=== PATIENT | female | born 1955 | race Caucasian/White ===

== ENCOUNTER 2023-10-13 11:28 | Inpatient (IN) ==
--- NOTE | 2023-10-13 11:40 | ED Triage Note ---
Date of Service October 13, 2023 Provider in Triage Author: Alissa Collins History of Present Illness This patient was briefly evaluated while in triage. An abbreviated physical exam was performed. This patient is a 67-year-old Female who presents to the ED for evaluation of chest pain and shortness of breath x 2.5 hours. She states pain is in the center of her chest and radiates upward into her throat slightly. Did have some pain in the right arm earlier. Has hx of HTN, HLD and DM. No hx cardiac disease. Physical Exam VITALS: Vitals are noted on the nurse's note and reviewed by myself. GENERAL: This is a 67-year-old female, sitting upright in triage. HEART: Regular rate and rhythm without murmurs gallops or rubs. LUNGS: Clear to auscultation bilaterally without wheezes, rales or rhonchi. ABDOMEN: Soft, nontender to palpation. NEURO: Patient was alert and oriented to person place and time. Initial orders for labs and / or imaging were placed and patient was placed in the waiting area until a bed is available. Please see further documentation for the full ED course. MDM / Impression Impression Impression: New onset atrial fibrillation
[2023-10-13] MEDS: ASPIRIN CHEW 324 MG PO STA (11:53)
[2023-10-13 12:20] LABS: Basophils # (auto) 0.05 K/uL (0.00-0.20); Basophils % (auto) 0.6 %; Eosinophils # (auto) 0.19 K/uL (0.00-0.50); Eosinophils % (auto) 2.1 %; Hematocrit (blood only) 50.3 % (37.0-47.0); Hemoglobin 17.5 g/dl (12.0-16.0); Immature Granulocytes # (auto) 0.05 K/uL (0.01-0.20); Immature Granulocytes % (auto) 0.6 %; Lymphocytes # (auto) 2.62 K/uL (1.20-3.40); Lymphocytes % (auto) 29.5 %; Mean Corpuscular Hemoglobin 30.6 pg (25.0-34.0); Mean Corpuscular Hgb Conc 34.8 g/dL (32.0-36.0); Mean Corpuscular Volume 88.1 fL (80.0-100.0); Monocytes # (auto) 0.54 K/uL (0.11-0.59); Monocytes % (auto) 6.1 %; Neutrophils # (auto) 5.43 K/uL (1.40-6.50); Neutrophils % (auto) 61.1 %; Platelet Count 221 K/uL (130-400); RDW Coefficient of Variation 12.5 % (11.5-14.5); RDW Standard Deviation 40.4 fL (36.4-46.3); Red Blood Count 5.71 M/uL (4.20-5.40); White Blood Count 8.88 K/ul (4.8-10.8)
[2023-10-13] MEDS: NITROGLYCERIN SL 0.4 MG/TAB TAB ONE (12:25)
[2023-10-13] MEDS: dilTIAZem HCl 5 MG/ML 5 ML VIAL IV ONE (12:25)
[2023-10-13] MEDS: dilTIAZem HCl 5 MG/ML 5 ML VIAL IV STA (12:25)
[2023-10-13] MEDS: NITROGLYCERIN 60 SPRAYS/4.9 GM SPRAY ONE (12:25)
[2023-10-13] MEDS: SODIUM CHLORIDE 0.9% 1,000 ML IV ONE (12:26)
[2023-10-13 12:35] LABS: D Dimer 400 ug/L FEU (0-500); Partial Thromboplastin Ratio 0.9; Partial Thromboplastin Time 26 Seconds (21-31); Prothrombin Time 10.5 Seconds (9.0-12.0)
[2023-10-13 13:01] LABS: Albumin Globulin Ratio 1.4 (0.9-2); Albumin Level 4.7 gm/dl (3.4-5.0); BUN Creatinine Ratio 19.3 (10-20); Bilirubin,Total 0.7 mg/dl (0.2-1.0); Calcium 9.6 mg/dl (8.6-10.3); Est GFR (African American) 85.2 ml/min; Est GFR (Non-African American) 73.5 ml/min; Globulin 3.3 gm/dl (2.5-4.0); Magnesium 1.7 mg/dl (1.7-2.4)
--- NOTE | 2023-10-13 13:01 | XRay Report ---
XR chest 1V portable CLINICAL HISTORY: Chest pain, nonspecific TECHNIQUE: Single frontal radiograph of the chest was obtained. Comparison: None available at the time of this dictation. FINDINGS: No lines and tubes are seen. The cardiomediastinal silhouette is normal. The lungs are clear. No evid ence of pleural effusion or pneumothorax. IMPRESSION: No acute chest disease. ACT 112: Negative or not required by law. Electronically signed by: Lalo Javier M.D. 10/13/2023 12:59 PM
[2023-10-13 13:08] LABS: Troponin I High Sensitivity 7.6 pg/ml (0-14)
[2023-10-13] MEDS ORDERED: MAGNESIUM HYDROXIDE SUSP 30 ML UDC PO PRN (14:14)
[2023-10-13] MEDS ORDERED: ACETAMINOPHEN 325 MG TAB PO PRN (14:14)
[2023-10-13] MEDS ORDERED: ONDANSETRON INJ 2 MG/ML 2 ML VIAL IV PRN (14:14)
[2023-10-13] MEDS ORDERED: POLYETHYLENE (MIRALAX) 17 GM PACK PO PRN (14:14)
[2023-10-13] MEDS ORDERED: ALUMINUM/MAGNESIUM SUSP 30 ML UDC PO PRN (14:14)
[2023-10-13] MEDS: NITROGLYCERIN SL 0.4 MG/TAB TAB SL STA (14:20)
--- NOTE | 2023-10-13 14:32 | History & Physical Report ---
Date of Service October 13, 2023 Assessment & Plan (1) New onset atrial fibrillation: (2) Hypertension: (3) HLD (hyperlipidemia): (4) Acid reflux: (5) Non-insulin dependent type 2 diabetes mellitus: (6) Chest pain: Plan Ms. Arauz is a 67-year-old female with SOB, palpitations, and midsternal chest pain with radiation down her left arm. She reports feeling nauseous starting on Friday without vomiting. No other contributing symptoms. When placed on heart monitor she was noted to be in AF with RVR; 130-150. 1 sublingual nitro was administered with resolution of her chest pain. PMH: HTN, HLD, hypothyroidism, NIDDM2, and GERD. Reportedly patient had a repeat episode of chest pain at 2: 15 for which another sublingual nitro was administered. Chest x-ray negative. No leukocytosis, electrolytes unremarkable. D-dimer negative. Initial troponin negative. In the ED SL nitro x 1, ASA 324 mg, Cardizem bolus 20 mg along with 1L NS has been administered. Heart rate decreased to low 100s remaining in A-fib. She takes lisinopril/HCTZ as an outpatient but is not on any beta-avni. She does take a low-dose statin. Patient denies cardiac or stroke history outside of hypertension. Patient denies coffee or energy drink intake. When I was in the room it appeared based on the heart monitor that she was in normal sinus rhythm. Will obtain new EKG. AOx4 without diaphoresis, notes some bilateral trace lower extremity edema which is chronic for her, but no known heart failure. Patient will be admitted for new onset atrial fibrillation management. [id number]- VASc score 4 (age, gender, history of HTN and DM ). Given her moderate to severe risk of cardiac event given her [id number] and moderate- severe risk of AMI/CVA; will add beta-avni for rate control and heparin drip. Zain trend troponin, obtain echocardiogram (no baseline noted as an outpatient), ECG admit to PCU, consult cardiology, place on SSI while obtaining A1c, TSH, and lipid panel. New onset atrial fibrillation: Chest pain: Acute Initial heart rate irregular 130-150 [id number]: 4 ECG: AF with possible changes in II, III, and AvF; converted to NSR in the room; obtain repeat ECG Initial troponin negative; will trend x 1. Do not suspect ACS or other ischemic demand related to new onset A-fib No leukocytosis, D-dimer negative, no electrolyte abnormalities CXR negative Received nitro x 1 SL and ASA 324 mg in ED Received Cardizem bolus 20 mg in ED; Will place beta-avni and heparin drip Obtain ECHO; no baseline Obtain BNP, A1c, TSH, fasting lipid panel Consult cardiology HTN: Chronic Takes lisinopril/HCTZ; continue Does not take a beta-avni HLD: Chronic Takes atorvastatin; continue Most recent lipid panel 12/11/2022; TG 160, HDL 37, LDL 75 Diabetes Mellitus type II: Chronic Laa-bjuukyd-ihxpuechu Takes Trulicity and metformin; hold while inpatient and placed on SSI ACHS Most recent A1c 04/29/2023; 6.5; repeat while here in a.m. JIMENA: Chronic Was supposed to have a sleep study done, but has not yet GERD: Chronic Takes famotidine; continue Disposition: PCP: Dr. Badillo CODE STATUS: Full Code VTE prophylaxis: Heparin gtt I spent a total of 87 minutes coordinating, documenting, and providing care for this patient excluding time spent in the performance of separately billed services. All of the aforementioned completed while collaborating with the assigned attending physician for a full treatment plan. Please see their addendum for further details. History of Present Illness Chief Complaint: Chest pain and palpitations Primary Care Provider: Juan Badillo MD Ms. Arauz is a 67-year-old female that presented to the ED this morning with complaints of shortness of breath, palpitations, and midsternal chest pain with radiation down her left arm. She reports feeling nauseous starting on Friday without vomiting. No other contributing symptoms. When placed on heart monitor she was noted to be in atrial fibrillation with rapid ventricular response with a rate ranged from 130-150. 1 sublingual nitro was administered with resolution of her chest pain. Additional past medical history includes HTN, HLD, hypothyroidism, ldg-rrpzbdj-hrsqjjawk diabetes type 2, and GERD. In the ED SL nitro x 1, ASA 324 mg, Cardizem bolus 20 mg along with 1L NS administered. Heart rate decreased to low 100s remaining in A-fib. Reportedly patient had a repeat episode of chest pain at 2:15 for which another sublingual nitro was administered. Chest x-ray negative for acute cardiopulmonary disease. No leukocytosis, stefan ctrolytes unremarkable. D-dimer negative. Initial troponin negative. She takes lisinopril/HCTZ as an outpatient but is not on any beta-avni medication. She does take a low-dose statin. Patient denies any cardiac or stroke history outside of hypertension. Father had extensive history of CAD s/p AMI, DM2, and CVA. He was at 95 y/o. Denies tobacco, alcohol, or recreational drug use. Review of outpatient records indicate on 04/29/2023 her last A1c (6.5) and TSH (13.20) were drawn. Patient denies coffee or energy drink intake. Patient denies headache, dizziness,, shortness of breath, abdominal pain or tenderness, visual or auditory changes, changes with bowel or urine, recent falls or trauma. When I was in the room it appeared based on the heart monitor that she converted to normal sinus rhythm. Will obtain new EKG. Otherwise AOx4 without diaphoresis, notes some bilateral trace lower extremity edema which is chronic for her. Patient will be admitted for new onset atrial fibrillation management. [id number]- VASc score 4 (age, gender, history of HTN and DM ). Given her moderate to severe risk of cardiac event given her [id number] and moderate- severe risk of AMI/CVA; will add beta-avni for rate control and heparin drip. Zani trend troponin, obtain echocardiogram (no baseline noted as an outpatient), ECG admit to PCU, consult cardiology, place on SSI while obtaining A1c, TSH, and lipid panel. Allergies Allergy/AdvReac Type Severity Reaction Status Date / Time No Known Allergies AdvReac Unknown Unverified 10/13/23 13:14 Home Medications Medication Instructions Recorded Confirmed Type atorvastatin 20 mg tablet 20 mg PO QAM 10/13/23 10/13/23 History calcium carbonate 600 mg-vitamin 2 tab PO DAILY 10/13/23 10/13/23 History D3 10 mcg (400 unit) tablet (Calcium 600 + D(3)) dulaglutide 0.75 mg/0.5 mL 0.75 mg subcut .WEEK 10/13/23 10/13/23 History subcutaneous pen injector (Trulicity) famotidine 40 mg tablet 40 mg PO HS 10/13/23 10/13/23 History fexofenadine 180 mg tablet 180 mg PO DAILY 10/13/23 10/13/23 History fluticasone propionate 50 2 spray intranasal DIRECTED PRN 10/13/23 10/13/23 History mcg/actuation nasal Nasal Congestion spray,suspension (Flonase Allergy Relief) dgbshozhuvs-yzufwxjkc-slb C-Mn 500 1 cap PO DAILY 10/13/23 10/13/23 History mg-400 mg capsule levothyroxine 75 mcg tablet 75 mcg PO QAM 10/13/23 10/13/23 History lisinopril 10 1 tab PO QAM 10/13/23 10/13/23 History mg-hydrochlorothiazide 12.5 mg tablet meclizine 25 mg tablet 25 mg PO TID PRN .dizzyness 10/13/23 10/13/23 History metformin 500 mg tablet,extended 500 mg PO QAM 10/13/23 10/13/23 History release 24 hr multivitamin 1 tab PO DAILY 10/13/23 10/13/23 History omega-3 fatty acids 1,000 mg 1,000 mg PO DAILY 10/13/23 10/13/23 History capsule Past Med/Surg History Medical History (Updated 10/13/23 @ 15:42 by CHELSEA Zamorano) Chest pain Non-insulin dependent type 2 diabetes mellitus New onset atrial fibrillation Acid reflux HLD (hyperlipidemia) Hypertension Surgical History (Updated 10/13/23 @ 15:44 by CHELSEA Zamorano) History of tubal ligation S/P ankle ligament repair Family History (Updated 10/13/23 @ 15:43 by CHELSEA Zamorano) Father Coronary heart disease Diabetes Other No pertinent family history in first degree relatives Social History Smoking Status: Never smoker Preferred Language: Macedonian Feels Safe at Home: Yes Review of Systems Review of Systems: Neuro: (-) Falls, trauma, slurred speech HEENT: (-) ADAMSON, dizziness, dysphagia, visual or auditory changes CV: (+) CP, palpitations, (+) 1 LE swelling Resp: (-) SOB GI: (-) appetite changes, N/V/D, bowel changes : (-) urinary changes Skin: (-) rashes Psych: (-) anxiety, depression Physical Exam Physical Exam: Neuro: AAOx4, PERRLA, no aphagia, memory changes, CNII-XII grossly intact HEENT: head normocephalic, moist mucus membranes CV: S1/S2, (-) M/G/R, (+)1 BL edema, cap refill < 3 seconds Resp: Lungs CTA in all pham. On RA GI: Abdomen S/NT/ND, Ax4 bowel sounds, (-) CVA tenderness Musculoskeletal: 5/5 B/L UE strength, 5/5 B/L LE strength. No gait disturbance Skin: (-) rashes , (-) erythema. Psych: euthymic mood Results & Data Results & Data Vital Signs (Past 12 Hours) Vital Signs Temp Pulse Resp BP Pulse Ox O2 Del Method 10/13/23 13:45 104 H 20 95 10/13/23 13:30 92 H 18 95 10/13/23 13:30 127/88 10/13/23 13:17 90 18 95 10/13/23 13:17 107/88 10/13/23 13:00 99 H 18 94 10/13/23 13:00 114/68 10/13/23 12:45 138/78 10/13/23 12:45 96 H 24 93 10/13/23 12:36 86 10/13/23 12:34 99 H 20 93 10/13/23 12:15 98 Room Air 10/13/23 11:38 36.7 C 117 H 20 142/85 H 95 Room Air Laboratory Results Short CBC 10/13/23 Range/Units 12:07 WBC 8.88 (4.8-10.8) K/ul Hgb 17.5 H (12.0-16.0) g/dl Hct 50.3 H (37.0-47.0) % Plt Count 221 (130-400) K/uL BMP 10/13/23 12:07 Sodium 139 Potassium 4.0 Chloride 104 Carbon Dioxide 28 BUN 16 Creatinine 0.83 Glucose 196 H Calcium 9.6 Liver Function 10/13/23 Range/Units 12:07 Total Bilirubin 0.7 (0.2-1.0) mg/dl AST 25 (13-39) U/L ALT 27 (7-52) U/L Alkaline Phosphatase 60 (34-104) U/L Albumin 4.7 (3.4-5.0) gm/dl Diagnostic Findings Chest X-Ray 10/13/23 11:40 XR chest 1V portable CLINICAL HISTORY: Chest pain, nonspecific TECHNIQUE: Single frontal radiograph of the chest was obtained. Comparison: None available at the time of this dictation. FINDINGS: No lines and tubes are seen. The cardiomediastinal silhouette is normal. The lungs are clear. No evidence of pleural effusion or pneumothorax. IMPRESSION: No acute chest disease. ACT 112: Negative or not required by law. Electronically signed by: Lalo Javier M.D. 10/13/2023 12:59 PM Code Status & VTE Plan Code Status Full code in the event of cardiac respiratory arrest VTE Prophylaxis Plan VTE Prophylaxis will be ordered: Yes Supervising Physician Co-Signing Physician Notes Attending addendum: The patient was seen and examined in emergency room in presence of the significant other She has been complaining of chest pain with shortness of breath and radiation of pain to the neck since yesterday She has not had this problem before, denies any palpitation No nausea no vomiting, no fever or chills and no abdominal pain or problem with urine or bowel habit On examination Lying in bed comfortably Hemodynamically stable with tachycardia of 104 Chest-clear to auscultate bilaterally Heart-S1-S2, regular without any murmur Abdomen-benign Extremities-trace edema bilaterally Her admission labs, EKG and imaging studies reviewed Initial EKG did show A-fib with a rate of [address]-T wave changes-received 20 of intravenous Cardizem Converted to sinus rhythm as per monitor Cardiac enzymes unremarkable and will be checked again to make sure there is no ACs Started on intravenous heparin and also oral beta-avni Cardiology evaluation Agree with assessment and plan as outlined above by Digna Collier
[2023-10-13] MEDS ORDERED: METOPROLOL SUCC 25MG EXT REL TAB PO SCH (15:15)
[2023-10-13] MEDS ORDERED: DEXTROSE 50% 50 ML SYRINGE IV PRN (15:31)
[2023-10-13] MEDS ORDERED: CARBOHYDRATES FOR HYPOGLYCEMIA PO PRN (15:31)
[2023-10-13] MEDS ORDERED: GLUCOSE 10 TAB/TUBE PO PRN (15:31)
[2023-10-13] MEDS ORDERED: GLUCOSE 40% GEL 15 GM TUBE PO PRN (15:31)
[2023-10-13] MEDS ORDERED: GLUCAGON FOR INJ 1 MG VIAL SQ PRN (15:31)
[2023-10-13] MEDS ORDERED: PHARMACY GLYCEMIC MGMT CONSULT PRN (15:31)
[2023-10-13] MEDS ORDERED: FLUTICASONE PROPIONATE NA SPR 16 GM BTL PRN (15:36)
[2023-10-13 15:47] LABS: Troponin I High Sensitivity 9.3 pg/ml (0-14)
[2023-10-13 15:55] LABS: Thyroid Stimulating Hormone 9.721 uIu/ml (0.300-4.500)
--- OUTSIDE RECORDS SUMMARY | 2023-10-13 15:57 | External Medical Summary | Summary of Care ---
Author Name Unknown Organization [facility] Address [address] [place] [address] Phone [phone] Care Team Providers Care Steel Checker Name Role Phone Juan Badillo MD Primary Care Provider [phone] Encounter Details Date Type Department Care Team (Late st Contact Info) Description 10/01/2023 Orders Only PATIENT PORTAL DO NOT DELETE THIS DEPT USED BY [place] [id number] Allergies No known active allergiesdocumented as of this encounter (statuses as of 10/01/2023) Medications Medication Sig Dispensed Refills Start Date End Date Status DUANE 180 MG PO TABS One pill by mouth once a day for allergies 30 Tab 11 12/02/2011 Active MECLIZINE HCL 25 MG PO TABSIndications:Vert igo One pill by mouth up to 3 times a day as needed for dizziness 30 Tab 1 12/02/2011 Active MULTIVITAMINS PO CAPS one pill each day 0 Active CALCIUM 1000 + D 1000-800 MG-UNIT PO TABS one pill each day 0 Active GLUCOSAMINE CHONDR 1500 COMPLX PO CAPS one pill each day 0 Active OCEAN NASAL SPRAY 0.65 % NA SOLNIndications:Charline llergic rhinitis Two sprays in each nostril as needed for nasal dryness or congestion 1 Bottle 5 08/29/2014 Active fluticasone (FLONASE) 50 MCG/ACT nasal sprayIndications:Chr onic rhinitis USE 2 SPRAYS EACH NOSTRIL ONCE DAILY 16 mL 5 07/14/2015 Active omega-3 1000 MG CAPS Take by mouth. 0 Active Diclofenac Sodium 75 MG Oral Tablet Delayed Release (VOLTAREN)Indication s:Plantar fasciitis TAKE 1 TAB BY MOUTH 2 TIMES A DAY WITH FOOD 180 Tab 0 07/12/2020 Active Lisinopril-hydroCHLO ROthiazide 10-12.5 MG Oral TabletIndications:HT N, goal below 140/90 TAKE BY MOUTH 1 TABLET IN THE MORNING. 90 Tablet 3 12/13/2022 Active Famotidine 40 MG Oral Tablet (Pepcid) TAKE 1 TABLET BY MOUTH EVERYDAY AT BEDTIME 90 Tablet 2 03/20/2023 Active Atorvastatin Calcium 20 MG Oral Tablet (Lipitor)Indications :Dyslipidemia, goal LDL below 100 TAKE 1 TABLET BY MOUTH EVERY DAY IN THE MORNING 90 Tablet 2 03/20/2023 Active Levothyroxine Sodium 75 MCG Oral Tablet (Levoxyl)Indications :Acquired hypothyroidism,Hyper glycemia Take 1 Tablet by mouth in the morning. (at least 30 min prior to breakfast or other meds). 30 Tablet 5 05/06/2023 Active Joint Health Oral Capsule Take by mouth. 0 Active Trulicity 0.75 MG/0.5ML Subcutaneous Solution Pen-injector (Dulaglutide)Indicat ions:Diabetes mellitus without complication (HCC) Inject 0.75 mg under the skin once a week. 2 mL 1 09/30/2023 Active metFORMIN HCl ER 500 MG Oral Tablet Extended Release 24 Hour (Glucophage XR) Take 1 Tablet by mouth in the morning. 30 Tablet 11 09/30/2023 Active documented as of this encounter (statuses as of 10/01/2023) Active Problems Problem Noted Date Diagnosed Date Acquired hypothyroidism 09/30/2023 Diabetes mellitus without complication Mass of uterine adnexa 04/29/2023 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 Hypertension 12/10/2021 Gastroesophageal reflux disease 12/10/2021 Body mass index (BMI) of 40.0 to 44.9 in adult 1 Overview: Per Obesity protocol - bmi= 34.65 10/14/12 Nonallergic rhinitis 08/29/2014 Hyperlipidemia 10/14/2012 Menopause 10/01/2005 documented as of this encounter (statuses as of 10/01/2023) Resolved Problems Problem Noted Date Diagnosed Date Resolved Date Obesity, Class I, BMI 30.0-3 4.9 (see actual BMI) 10/14/2012 06/16/2019 Overview: bmi= 34.65 10/14/12 Dysfunction of eustachian tube 10/14/2012 04/02/2018 Hyperlipidemia with target LDL less than 100 2 10/14/2012 Overview: ICD-10 update of inactive term Cough 10/29/2005 04/02/2018 ACUTE URI NOS 10/29/2005 10/20/2008 Overview: Resolved per Benign Acute Dxs Protocol #3 Unspecified viral infection, in conditions classified elsewhere and of unspecified site 10/29/2005 04/02/2018 ADVANCE DIRECTIVE INFORMATION 10/01/2005 06/17/2019 Overview: No, Advance Directive brochure given to patient at prior appointment. Dyslipidemia, goal to be determined 04/16/2002 10/14/2012 Chronic rhinitis 11/30/2001 10/14/2012 documented as of this encounter (statuses as of 10/01/2023) Immunizations Name Administration Dates Next Due H1N1 2009 Influenza, IM 09/05/2009 Seasonal Influenza, PF, 6 M & above, IM , (FluLaval or Fluzone) 06/01/2019 Seasonal Influenza, Quadriva lent, No Preserve, IM 07/28/2020,06/26/2018,06/15/2017 Seasonal Influenza, Split, I IV3, With Preserve, Inj 07/02/2016,06/08/2014,06/16/2013,07/02,07/02/2011,07/02/2009,07/09/2008 TDAP (age 10 and older)(Boostrix) 06/13/2014 TDAP (age 11 and older)(Adacel) 12/28/2008 12/28/2018 Zoster Vaccine Recombinant (Shingrix) 12/25/2021 documented as of this encounter Social History Tobacco Use Types Packs/Day Years Used Date Smoking Tobacco: Never Passive Smoke Exposure: Past Smokeless Tobacco: Never Alcohol Use Standard Drinks/Week Comments No 0 (1 standard drink = 0.6 oz pur e alcohol) PHQ-2 Answer Date Recorded PHQ Adult Total Score 0 12/11/2022 Hunger Vital Sign Answer Date Recorded Within the past 12 months, y ou worried that your food would run out before you got the money to buy more. Never true 12/12/19 23 Within the past 12 months, t he food you bought just didn't last and you didn't have money to get more. Never true 12/11/2022 Sex and Gender Information Value Date Recorded Sex Assigned at Not on file Gender Identity Not on file Sexual Orientation Straight 08/15/2020 7: 30 AM EST Job Start Date Occupation Industry Not on file Not on file Not on file documented as of this encounter Plan of Treatment Upcoming Encounters Date Type Department Care Team (Late st Contact Info) Description 10/09/2023 11:00 AM EST Office Visit [facility] [address] [place] [phone] Jennifer Sutton CRNP [address] [place] [id number] 12/15/2023 8:20 AM EDT Office Visit [facility] [address] [place] [phone] Juan Badillo MD [address], [place] [id number] Scheduled Procedures Name Priority Associated Diagnoses Date/Ti me COLONOSCOPY FLEXIBLE PROXIMA L DIAGNOSTIC Recall History of colonic polyps Health Maintenance Due Date Last Done Comments COVID-19 Vaccine (#1) 06/21/1956 Pneumococcal Vaccine: 65+ Years (1 - PCV) 1962 Diabetic Foot Exam 1974 Hepatitis C Screening 1974 Hepatitis B (1 of 3 - Risk 3-dose series) 2016 Zoster Vaccines (2 of 2) 02/19/2022 12/25/2021 Influenza Vaccine (FLU shot) (#1) 2023 07/28/2020, 06/01/2019, 06/26/2018, Additional history exists HbA1c 10/30/2023 04/29/2023 Albumin/Creatinine Ratio 12/12/2023 12/11/2022 Depression Screening 12/12/2023 12/11/2022 GFR 12/12/2023 12/11/2022, 12/01, 07/19/2019, Additional history exists Mammogram 04/10/2024 04/10/2023, 04/01, 03/27/2022, Additional history exists TSH 04/29/2024 04/29/2023, 11/30, 08/02/2002, Additional history exists DTaP,Tdap,and Td Vaccines (3 - Td or Tdap) 06/13/2024 06/13/2014, 12/28/2008, 01/06/1999 Diabetic Eye Exam 09/30/2024 09/30/2023 DXA Scan 09/18/2025 09/18/2022, 09/01, 02/17/2012, Additional history exists Lipid Panel 12/12/2027 12/11/2022, 12/01, 06/01/2019, Additional history exists COLONOSCOPY-EVERY 5 YRS AGES 18-100 04/07/2028 04/07/2023, 04/07/2023, 04/06/2018, Additional history exists Pap Smear Discontinued 05/09/2020, 10/2017, 01/20/2012, Additional history exists GARDASIL-HPV IMMUNIZATION SERIES Aged Out No longer eligible based on patient's age to complete this topic MENINGOCOCCAL (MENACTRA/MENVEO) Aged Out No longer eligible based on patient's age to complete this topic documented as of this encounter Medical Devices Not on filedocumented as of this encounter Care Teams Steel Checker Relationship Specialty Start Date End Date Juan Badillo MD [address] [place] [address] PCP - General 06/01/00 documented as of this encounter
--- OUTSIDE RECORDS SUMMARY | 2023-10-13 15:57 | External Medical Summary | Summary of Care ---
Author Name Unknown Organization [facility] Address [address] [facility] [place] [address] Phone [phone] Care Team Providers Care Sponsorship Coordinator Name Role Phone Juan Badillo MD Primary Care Provider +1- [phone] Reason for Referral * Evaluate & Treat - Unlimited Visits (Within 10 days (routine)) - Authorized Specialty Diagnoses / Procedures Referred By Lizzie chen Referred To Contact Sleep Medicine / Sleep Disorders Diagnoses Body mass index (BMI) of 40.0 to 44.9 in adult ([facility]) Primary hypertension Fatigue, unspecified type Paulette Soto MD [address] [place] [address] Referral ID Status Reason Start Date Expiration Date Visits Requested Visits Authorized [id number] Authorized Specialty Services Required 09/30/2023 2 2 Question Answer GS CAD SLEEP MED ADULT REFERRAL Sleep Apnea Testing and Management Does the patient snore and/or gasp at night or has been told they stop breathing at night? Yes Referral Priority Within 10 days (routine) Where should this appointment be scheduled? [facility] * Medication Prior Authorization - Pending Review Specialty Diagnoses / Procedures Referred By Lizzie chen Referred To Contact Diagnoses Diabetes mellitus without complication ([facility]) Paulette Soto MD [address] [place] [address] Referral ID Status Reason Start Date Expiration Date V isits Requested Visits Authorized [id number] Pending Review 999 999 Reason for Visit * Reason Comments Status Check Gets winded when wal kingQuestions regarding Golow and other diet drugs out there Encounter Details Date Type Department Care Team (Late st Contact Info) Description 09/30/2023 11:20 AM EST [facility] [address] [facility] [place] [address] Paulette Soto MD [address] [facility] [address] Fatigue, unspecified type*; Body mass index (BMI) of 40.0 to 44.9 in adult (HCC); Primary hypertension; HTN, goal below 140/90; Dyslipidemia, goal LDL below 100; Acquired hypothyroidism; Diabetes mellitus without complication (HCC) Allergies No known active allergiesdocumented as of this encounter (statuses as of 09/30/2023) Medications Medication Sig Dispensed Refills Start Date [...] as of this encounter (statuses as of 09/30/2023) Active Problems Problem Noted Date Diagnosed Date Acquired hypothyroidism 09/30/2023 Diabetes mellitus without complication 4 Mass of uterine adnexa 04/29/2023 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 Hypertension 12/10/2021 Gastroesophageal reflux disease 12/10/2021 Body mass index (BMI) of 40.0 to 44.9 in adult 1 Overview: Per Obesity protocol - bmi= 34.65 10/14/12 Nonallergic rhinitis 08/29/2014 Hyperlipidemia 10/14/2012 Menopause 10/01/2005 documented as of this encounter (statuses as of 09/30/2023) Resolved Problems Problem Noted Date Diagnosed Date [...] as of this encounter (statuses as of 09/30/2023) Immunizations Name Administration Dates Next Due H1N1 [...] Passive Smoke Exposure: Past Smokeless Tobacco: Never Tobacco Cessation:Counseling Given: Not Answered Alcohol Use Standard Drinks/Week Comments No 0 [...] on file documented as of this encounter Last Filed Vital Signs Vital Sign Reading Time Taken Comments Blood Pressure 124/78 09/30/2023 11:07 AM EST Pulse 91 09/30/2023 11:07 AM EST Temperature 36.1 C (96.9 F) 09/30/2023 11:[address] Respiratory Rate 16 09/30/2023 11:07 AM EST Oxygen Saturation 95% 09/30/2023 11:07 AM EST Inhaled Oxygen Concentration - - Weight 108.4 kg (239 lb) 09/30/2023 11:07 AM EST Height - - Body Mass Index 43.71 04/29/2023 11:01 AM EDT documented in this encounter Progress Notes * Paulette Soto MD - 09/30/2023 11:53 AM EST Subjective Lisa Arauz is a 67 year old female. Chief Complaint Patient presents with Status Check Gets winded when walking Questions regarding Golow and other diet drugs out there HPI: Here to discuss about fatigue, easily getting winded on walking Also would like to discuss about weight loss med She had blood tests done in apr, which showed mild type 2 DM, hba1c 6.5 and hypothyroidism, Known morbid obesity Tried to contact pt about result and medication use But pt never got back Has been taking thyroid med occ , not compliant And also didn't know about DM Will try trulicity ( has supply issue ) And also ordering metformin Diet exercise - discussed And with fatigue , obesity, thick neck , will get sleep test Hypertension , Hl Taking medication as prescribed, see med list. No medication side effects noted. Advised patient tokeep healthy life style, regular exercise with good diet, tejas. low sodium diet. And also check BP at home too. Denies associated chest discomfort, chest heaviness, chest pressure, chest tightness, edema, palpitations PMH: Patient Active Problem List Diagnosis Code Menopause Z78.0 Hyperlipidemia E78.5 Nonallergic rhinitis J31.0 Body mass index (BMI) of 40.0 to 44.9 in adult (HCC) Z68.41 Hypertension I10 Gastroesophageal reflux disease K21.9 Mass of uterine adnexa N94.89 Sclerosing mesenteritis ([facility]) K65.4 Acquired hypothyroidism E03.9 Diabetes mellitus without complication ([facility]) E11.9 Current Outpatient Medications Medication Sig Dispense Refill DUANE 180 MG PO TABS One pill by mouth once a day for allergies 30 Tab 11 MECLIZINE HCL 25 MG PO TABS One pill by mouth up to 3 times a day as needed for dizziness 30 Tab 1 MULTIVITAMINS PO CAPS one pill each day CALCIUM 1000 + D 1000-800 MG-UNIT PO TABS one pill each day GLUCOSAMINE CHONDR 1500 COMPLX PO CAPS one pill each day OCEAN NASAL SPRAY 0.65 % NA SOLN Two sprays in each nostril as needed for nasal dryness or congestion 1 Bottle 5 fluticasone (FLONASE) 50 MCG/ACT nasal spray USE 2 SPRAYS EACH NOSTRIL ONCE DAILY 16 mL 5 omega-3 1000 MG CAPS Take by mouth. Diclofenac Sodium 75 MG Oral Tablet Delayed Release (VOLTAREN) TAKE 1 TAB BY MOUTH 2 TIMES A DAY WITH FOOD 180 Tab 0 Lisinopril-hydroCHLOROthiazide 10-12.5 MG Oral Tablet TAKE BY MOUTH 1 TABLET IN THE MORNING. 90 Tablet 3 Famotidine 40 MG Oral Tablet (Pepcid) TAKE 1 TABLET BY MOUTH EVERYDAY AT BEDTIME 90 Tablet 2 Atorvastatin Calcium 20 MG Oral Tablet (Lipitor) TAKE 1 TABLET BY MOUTH EVERY DAY IN THE MORNING 90Tablet 2 Levothyroxine Sodium 75 MCG Oral Tablet (Levoxyl) Take 1 Tablet by mouth in the morning. (at least 30 min prior to breakfast or other meds). 30 Tablet 5 Joint Health Oral Capsule Take by mouth. Trulicity 0.75 MG/0.5ML Subcutaneous Solution Pen-injector (Dulaglutide) Inject 0.75 mg under the skin once a week. 2 mL 1 metFORMIN HCl ER 500 MG Oral Tablet Extended Release 24 Hour (Glucophage XR) Take 1 Tablet by mouthin the morning. 30 Tablet 11 No current facility-administered medications for this visit. Past Medical History: Diagnosis Date Chronic rhinitis Plantar fasciitis Past Surgical History: Procedure Laterality Date COLONOSCOPY 06/2006 NL - repeat 5-10 yrs COLONOSCOPY, DIAGNOSTIC (RECTUM) 04/06/2018 normal, repeat 5 yrs/COLONOSCOPY FLEXIBLE PROXIMAL DIAGNOSTIC performed by Tonia Oconnell MD at END[facility]COPY [facility] COLONOSCOPY, DIAGNOSTIC (RECTUM) 04/07/2023 biopsies show adenomatous polyps/recall 5 years/COLONOSCOPY FLEXIBLE PROXIMAL DIAGNOSTIC performed by Tonia Oconnell MD at ENDOSCOPY [facility] LIGATE/CUT OVIDUCT(S) 1978 REMOVAL OF KNEE CARTILAGE 08/2000 repair cartilage Review of patient's allergies indicates: No Known Allergies Family History Problem Relation Age of Onset Osteoporosis Mother Heart Disorder Father Hyperlipidemia Stroke Father 88 Heart Disorder Grandfather (Paternal) [place] age 50 Family Status Relation Status Mo Alive Fa Alive Sis Alive Sis Alive Sis Alive Bro Alive Bro Alive Bro Alive Bro Alive MGMA MGFA PGMA PGFA Bradley Alive Bradley Alive Social History Socioeconomic History Marital status: Spouse name: Gelacio Number of children: 2 Years of education: Not on file Highest education level: Not on file Occupational History Occupation: STERILE SUPPLY TECHNICIAN Employer: [employer] Comment: [employer] Tobacco Use Smoking status: Never Passive exposure: Past Smokeless tobacco: Never Substance and Sexual Activity Alcohol use: No Drug use: No Sexual activity: Yes Partners: Male control/protection: Surgical Comment: tubal Other Topics Concern Not on file Social History Narrative Not on file Social Determinants of Health Financial Resource Strain: Not on file Food Insecurity: No Food Insecurity (12/11/2022) Hunger Vital Sign Worried About Running Out of Food in the Last Year: Never true Ran Out of Food in the Last Year: Never true Transportation Needs: Not on file Physical Activity: Not on file Stress: Not on file Social Connections: Not on file Intimate Partner Violence: Not on file Housing Stability: Not on file Review of Systems Constitutional: Positive for activity change and fatigue. Negative for appetite change, chills, diaphoresis, fever and unexpected weight change. HENT: Negative for hearing loss. Eyes: Negative for visual disturbance. Respiratory: Positive for shortness of breath (on exertion). Negative for cough, chest tightness and wheezing. Cardiovascular: Negative for chest pain, palpitations and leg swelling. Gastrointestinal: Negative for abdominal distention, abdominal pain, constipation, diarrhea, nauseaand vomiting. Endocrine: Negative. Allergic/Immunologic: Negative for environmental allergies. Neurological: Negative for dizziness, weakness, light-headedness, numbness and headaches. Psychiatric/Behavioral: Positive for sleep disturbance. Negative for agitation, behavioral problemsand dysphoric mood. The patient is not nervous/anxious. Objective BP 124/78 | Pulse 91 | Temp 36.1 C (96.9 F) (Infrared ) | Resp 16 | Wt 108.4 kg (239 lb) | LMP 12/15/2002 | SpO2 95% | BMI 43.71 kg/m | BSA 2.18 m Physical Exam Constitutional: General: She is not in acute distress. Appearance: Normal appearance. She is obese. She is not ill-appearing, toxic- appearing or diaphoretic. HENT: Head: Normocephalic and atraumatic. Nose: Nose normal. Eyes: Extraocular Movements: Extraocular movements intact. Cardiovascular: Rate and Rhythm: Normal rate and regular rhythm. Pulses: Normal pulses. Heart sounds: Normal heart sounds. No murmur heard. Pulmonary: Effort: Pulmonary effort is normal. No respiratory distress. Breath sounds: Normal breath sounds. No stridor. No wheezing, rhonchi or rales. Chest: Chest wall: No tenderness. Musculoskeletal: General: Normal range of motion. Right lower leg: No edema. Left lower leg: No edema. Lymphadenopathy: Cervical: No cervical adenopathy. Neurological: General: No focal deficit present. Mental Status: She is alert and oriented to person, place, and time. Psychiatric: Mood and Affect: Mood normal. Behavior: Behavior normal. ASSESSMENT/PLAN: Fatigue, unspecified type (Primary) - TSH WITH FREE T4 IF INDICATED; Future; Expected date: 09/30/2023 - SLEEP MEDICINE REFERRAL OP Body mass index (BMI) of 40.0 to 44.9 in adult ([facility]) - SLEEP MEDICINE REFERRAL OP Primary hypertension - SLEEP MEDICINE REFERRAL OP HTN, goal below 140/90 Dyslipidemia, goal LDL below 100 Acquired hypothyroidism - TSH WITH FREE T4 IF INDICATED; Future; Expected date: 09/30/2023 Diabetes mellitus without complication ([facility]) - TELEMEDICINE DIABETIC EYE - Trulicity 0.75 MG/0.5ML Subcutaneous Solution Pen-injector (Dulaglutide); Inject 0.75 mg under the skin once a week. - HEMOGLOBIN A1C; Future; Expected date: 09/30/2023 Other orders - metFORMIN HCl ER 500 MG Oral Tablet Extended Release 24 Hour (Glucophage XR); Take 1 Tablet by mouth in the morning. Check-out note: Sleep medicine Thyroid med daily Trulicity Metformin F/u blood tests in 2 mo And with PCP in 2.5 mo as scheduled Paulette Soto MD * Penny Harvey LPN - 09/30/2023 11:43 AM EST Diabetic eye exam done in office Pt tolerated well documented in this encounter Nursing Notes * Penny Harvey LPN - 09/30/2023 11:00 AM EST Chief Complaint Patient presents with Status Check Gets winded when walking Questions regarding Golow and other diet drugs out there documented in this encounter Plan of Treatment Upcoming Encounters Date Type Department Care Team (Late st Contact Info) Description 10/09/2023 11:00 AM EST Office [facility] [address] [facility] [place] [phone] Jennifer Sutton CRNP [address] [facility] [place] [address] 12/15/2023 8:20 AM EDT Office Visit [place] [address] [place] [id number] Juan Badillo MD [address] [place] [address] Scheduled Orders Name Type Priority Associated Diagnoses Orde r Schedule TSH WITH FREE T4 IF INDICATED Lab Routine Acquired hypothyroidism Fatigue, unspecified type Expected: 09/30/2023 (Approximate), Expires: 09/29/2024 HEMOGLOBIN A1C Lab Routine Diabetes mellitus without complication (HCC) Expected: 09/30/2023 (Approximate), Expires: 09/29/2024 Scheduled Procedures Name Priority Associated Diagnoses Date/Ti me COLONOSCOPY FLEXIBLE PROXIMA L DIAGNOSTIC Recall History of colonic polyps Scheduled Referrals Name Type Priority Associated Diagnoses Orde r Schedule SLEEP MEDICINE REFERRAL OP Referral Within 10 days (routine) Body mass index (BMI) of 40.0 to 44.9 in adult (HCC) Primary hypertension Fatigue, unspecified type Ordered: 09/30/2023 Health Maintenance Due Date Last Done Comments COVID-19 Vaccine (#1) 06/21/1956 Diabetic Foot Exam 1974 Hepatitis C Screening 1974 Pneumococcal Vaccine: 65+ Years (1 - PCV) 2021 Zoster Vaccines (2 of 2) 02/19/2022 12/25/2021 [...] Additional history exists Pap Smear Discontinued 05/09/2020, 0810/2017, 01/20/2012, Additional history exists GARDASIL-HPV IMMUNIZATION SERIES Aged Out No longer eligible based on patient's age to complete this topic Hepatitis B Aged Out No longer eligi ble based on patient's age to complete this topic MENINGOCOCCAL (MENACTRA/MENVEO) Aged Out No longer eligible based on patient's age to complete this topic documented as of this encounter Medical Devices Not on filedocumented as of this encounter Procedures Procedure Name Priority Date/Time Associated Diagnosis Comments TELEMEDICINE DIABETIC EYE Routine 09/30/2023 Diabetes mellitus without complication (HCC) documented in this encounter Results * TELEMEDICINE DIABETIC EYE (09/30/2023) 09/30/2023 Paulette Soto MD DIGITAL PHOTOGRAPHY documented in this encounter Visit Diagnoses Diagnosis Fatigue, unspecified type- Primary Body mass index (BMI) of 40.0 to 44.9 in adult (HCC) Primary hypertension Unspecified essential hypertension HTN, goal below 140/90 Unspecified essential hypertension Dyslipidemia, goal LDL below 100 Other and unspecified hyperlipidemia Acquired hypothyroidism Unspecified hypothyroidism Diabetes mellitus without complication (HCC) Type II or unspecified type diabetes mellitus without mention of complication, not stated as uncontrolled documented in this encounter Care Teams Sponsorship Coordinator Relationship Specialty Start Date End Date Juan Badillo MD [address] [place] [address] PCP - General 06/01/00 documented as of this encounter"
--- OUTSIDE RECORDS SUMMARY | 2023-10-13 15:57 | External Medical Summary | Summary of Care ---
Author Name Unknown Organization [facility] Address [address] [facility] [place] [address] Phone [phone] Care Team Providers Care Wet And Dry Sugar Bin Operator Name Role Phone Juan Badillo MD Primary Care Provider +1- [phone] Reason for Visit * Reason Onset Date Comments Scan To Read 09/30/2023 Encounter Details Date Type Department Care Team ([facility] st Contact Info) Description 09/30/2023 Telephone [facility] [address] [place] [address] Juan Badillo MD [address] [place] [address] Scan To Read Allergies No known active allergiesdocumented as of this encounter (statuses as of 10/02/2023) Medications Medication Sig Dispensed Refills Start Date [...] as of this encounter (statuses as of 10/02/2023) Active Problems Problem Noted Date Diagnosed Date Acquired hypothyroidism 09/30/2023 Diabetes mellitus without complication 4 Mass of uterine adnexa 04/29/2023 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 Hypertension 12/10/2021 Gastroesophageal reflux disease 12/10/2021 Body mass index (BMI) of 40.0 to 44.9 in adult 1 Overview: Per Obesity protocol - bmi= 34.65 10/14/12 Nonallergic rhinitis 08/29/2014 Hyperlipidemia 10/14/2012 Menopause 10/01/2005 documented as of this encounter (statuses as of 10/02/2023) Resolved Problems Problem Noted Date Diagnosed Date [...] as of this encounter (statuses as of 10/02/2023) Immunizations Name Administration Dates Next Due H1N1 [...] on file documented as of this encounter Miscellaneous Notes * Telephone Encounter - Seymour Gifford MD - 09/30/2023 12:02 PM EST Retinal Scan Imaging Lisa Arauz [id number] Retinal Scan Interpretation: There is no retinopathy in both eyes Diabetes Retinal Imaging Care Plan: The retinal scan results are normal - I will forward this encounter to the Ophthalmology DM Letter Pool [[id number]], they will send a normal retinal scan letter to the patient, and the patient will be seen back for a yearly scan. Seymour Gifford MD 09/30/2023 12:02 PM * Telephone Encounter - Penny Harvey LPN - 09/30/2023 11:44 AM EST A Diabetic Telemed Eye image was taken and requires your interpretation for Dr Soto. Please check your inbasket for image. Patient prefers to be seen at [facility] if a follow-up appointment is needed. documented in this encounter Plan of Treatment Upcoming Encounters Date Type Department Care Team (Late st Contact Info) Description 10/09/2023 11:00 AM EST Office [facility] [address] [place] [phone] Jennifer Sutton CRNP [address] [place] [address] 12/15/2023 8:20 AM EDT Office Visit [facility] [address] [place] [facility] [place] [address] Juan Badillo MD [address] [place] [address] Scheduled Procedures Name Priority Associated Diagnoses Date/Ti [...] filedocumented as of this encounter Care Teams Wet And Dry Sugar Bin Operator Relationship Specialty Start Date End Date Juan Badillo MD [address] [place] [address] PCP - General 06/01/00 documented as of this encounter
--- OUTSIDE RECORDS SUMMARY | 2023-10-13 15:57 | External Medical Summary | Summary of Care ---
Author Name Unknown Organization [facility] Address [address] [facility] [place] [address] Phone [phone] Care Team Providers Care Geological Engineering Teacher Name Role Phone Juan Badillo MD Primary Care Provider +1- [phone] Reason for Visit * Reason Onset Date Comments Medication Pre-auth 09/30/2023 TRULICITY Encounter Details Date Type Department Care Team (Late st Contact Info) Description 09/30/2023 Telephone [facility] [address] [place] [address] Paulette Soto MD [address] [place] [address] Medication Pre-auth (TRULICITY) Allergies No known active allergiesdocumented as of [...] encounter Miscellaneous Notes * Telephone Encounter - Jarek Olivares CPhT - 09/30/2023 11:45 AM EST Patients insurance would like to inform the office that TRULICITY is not requiring review because No review needed. paid claim at the pharmacy 09.30.23 and test claims pay as well. EOC ID: [id number] Thank you, Freedom Olivares (electrocardiogram technician) Nurseryman Assistant III [facility] ([facility]) 09/30/2023, 11:45 AM documented in this encounter Plan of Treatment Upcoming Encounters Date Type Department Care Team (Late st Contact Info) Description 10/09/2023 11:00 AM EST Office Visit [facility] [address] [place] [phone] Jennifer Sutton CRNP [address] [place] [address] 12/15/2023 8:20 AM EDT Office Visit [address] [place] [address] Juan Badillo MD [address] [place] [address] Scheduled Procedures Name Priority Associated Diagnoses Date/Ti [...] Additional history exists Pap Smear Discontinued 05/09/2020, 08/10/2017, 01/20/2012, Additional history exists GARDASIL-HPV IMMUNIZATION SERIES [...] filedocumented as of this encounter Care Teams Geological Engineering Teacher Relationship Specialty Start Date End Date Juan Badillo MD [address] [place] [address] PCP - General 06/01/00 documented as of this encounter
--- OUTSIDE RECORDS SUMMARY | 2023-10-13 15:58 | External Medical Summary ---
Author Name Unknown Address Unknown Organization K01:[facility] [place] [address] [place] [address] Laboratory Report Ordering Provider Test Date Status SARITA ALBERTO 04/29/2023 11:52:01 Final Observation Date Value Abnormality Reference (Units ) Status TSH 04/29/2023 11:52:01 13.20 Above high normal 0. 27-4.20 (uIU/mL) Final Performing Location [facility] - [address] [place] [address]
--- OUTSIDE RECORDS SUMMARY | 2023-10-13 15:58 | External Medical Summary | Summary of Care ---
Author Name Unknown Organization [facility] Address [address] [facility] [place] [address] Phone [phone] Care Team Providers Care Transportation Operations Manager Name Role Phone Juan Badillo MD Primary Care Provider +1- [phone] Reason for Visit * Reason Comments Edema Pt states that her R hand has been swollen since 04/28/23. Encounter Details Date Type Department Care Team Description 04/29/[address] [facility] [address] [place] [address] Elena Schrader MD [address] [place] [address] Right wrist pain*; Elevated TSH; Hyperglycemia; Right elbow pain; Elevated blood pressure, situational Allergies No known active allergiesdocumented as of this encounter (statuses as of 05/06/2023) Medications Medication Sig Dispensed Refills Start Date End Date Status DUANE 180 MG PO TABS One pill by mouth once a day for allergies 30 Tab 11 12/02/2011 Active MECLIZINE HCL 25 MG PO TABSIndications:Mynor tigo One pill by mouth up to 3 times a day as needed for dizziness 30 Tab 1 12/02/2011 Active MULTIVITAMINS PO CAPS one pill each day 0 Active CALCIUM 1000 + D 1000-800 MG-UNIT PO TABS one pill each day 0 Active GLUCOSAMINE CHONDR 1500 COMPLX PO CAPS one pill each day 0 Active OCEAN NASAL SPRAY 0.65 % NA SOLNIndications:Non allergic rhinitis Two sprays in each nostril as needed for nasal dryness or congestion 1 Bottle 5 08/29/2014 Active fluticasone (FLONASE) 50 MCG/ACT nasal sprayIndications:Ch ronic rhinitis USE 2 SPRAYS EACH NOSTRIL ONCE DAILY 16 mL 5 07/14/2015 Active omega-3 1000 MG CAPS Take by mouth. 0 Active Diclofenac Sodium 75 MG Oral Tablet Delayed Release (VOLTAREN)Indicatio ns:Plantar fasciitis TAKE 1 TAB BY MOUTH 2 TIMES A DAY WITH FOOD 180 Tab 0 07/12/2020 Active Lisinopril-hydroCHL OROthiazide 10-12.5 MG Oral TabletIndications:H TN, goal below 140/90 TAKE BY MOUTH 1 TABLET IN THE MORNING. 90 Tablet 3 12/13/2022 Active Famotidine 40 MG Oral Tablet (Pepcid) TAKE 1 TABLET BY MOUTH EVERYDAY AT BEDTIME 90 Tablet 2 03/20/2023 Active Atorvastatin Calcium 20 MG Oral Tablet (Lipitor)Indication s:Dyslipidemia, goal LDL below 100 TAKE 1 TABLET BY MOUTH EVERY DAY IN THE MORNING 90 Tablet 2 03/20/2023 Active documented as of this encounter (statuses as of 05/06/2023) Active Problems Problem Noted Date Mass of uterine adnexa 04/29/2023 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 Hypertension 12/10/2021 Gastroesophageal reflux disease 12/11/19 22 Body mass index (BMI) of 40.0 to 44.9 in adult 06/14/2019 Overview: Per Obesity protocol - bmi= 34.65 10/14/12 Nonallergic rhinitis 08/29/2014 Hyperlipidemia 10/14/2012 Menopause 10/01/2005 documented as of this encounter (statuses as of 05/06/2023) Resolved Problems Problem Noted Date Resolved Date Obesity, Class I, BMI 30.0-34.9 (see actual BMI) 10/14/2012 06/16/2019 Overview: bmi= 34.65 10/14/12 Dysfunction of eustachian tube 10/14/2012 0 04/02/2018 Hyperlipidemia with target LDL less than 100 10/201110/14/2012 Overview: ICD-10 update of inactive term Cough 10/29/2005 04/02/2018 ACUTE URI NOS 10/29/2005 10/20/2008 Overview: Resolved per Benign Acute Dxs Protocol #3 Unspecified viral infection, in conditions classified elsewhere and of unspecified site 10/29/2005 04/02/2018 ADVANCE DIRECTIVE INFORMATION 10/01/2005 Overview: No, Advance Directive brochure given to patient at prior appointment. Dyslipidemia, goal to be determined 04/16/2002 10/14/2012 Chronic rhinitis 11/30/2001 10/14/2012 documented as of this encounter (statuses as of 05/06/2023) Immunizations Name Administration Dates Next Due H1N1 2009 Influenza, IM 09/05/2009 Seasonal Influenza, PF, 6 mo ns & Above, IM , (Flulaval) 06/01/2019 Seasonal Influenza, Quadriva lent, No Preserve, IM 07/28/2020,06/26/2018,06/15/2017 Seasonal Influenza, Split, I IV3, With Preserve, Inj 07/02/2016,06/08/2014,06/16/2013,07/02,07/02/2011,07/02/2009,07/09/2008 TDAP (age 10 and older)(Boostrix) 06/13/2014 TDAP (age 11 and older)(Adacel) 12/28/2008 12/28/2018 Zoster Vaccine Recombinant (Shingrix) 12/25/2021 documented as of this encounter Social History Tobacco Use Types Packs/Day Years Used Date Smoking Tobacco: Never Smokeless Tobacco: Never Tobacco Cessation:Counseling Given: Not Answered Alcohol Use Standard Drinks/Week Comments No 0 (1 standard drink = 0.6 oz pur e alcohol) Food Insecurity Answer Date Recorded Within the past 12 months, y ou worried that your food would run out before you got money to buy more. Never true 12/11/2022 Within the past 12 months, t he food you bought just didn't last and you didn't have money to get more. Never true 12/11/2022 Sex Assigned at Date Recorded Not on file Job Start Date Occupation Industry Not on file Not on file Not on file documented as of this encounter Last Filed Vital Signs Vital Sign Reading Time Taken Comments Blood Pressure 153/87 04/29/2023 11:01 AM EDT Pulse 85 04/29/2023 11:01 AM EDT Temperature 36.6 C (97.8 F) 04/29/2023 11:01 AM E DT Respiratory Rate 18 04/29/2023 11:01 AM EDT Oxygen Saturation 96% 04/29/2023 11:01 AM EDT Inhaled Oxygen Concentration - - Weight 108 kg (238 lb) 04/29/2023 11:01 AM EDT Height 157.5 cm (5' 2") 04/29/2023 11:01 AM EDT Body Mass Index 43.53 04/29/2023 11:01 AM EDT documented in this encounter Progress Notes * Elena Schrader MD - 04/29/2023 10:59 AM EDT ASSESSMENT / PLAN: Lisa Arauz is a 67 year old female with PMHx HLD / HTN / BMI >40 / GERD - here for acute concern Right wrist and elbow pain Pt is right handed X 1 day Moderate swelling Likely brought on by mechanical factors (corn shucking) Reviewed RICE therapy, imaging Abnormal lab values Glucose and tsh in particular Recommend recheck and treat appropriately Elev BP reading Pt did not take BP med this morning Also in pain Normally is well controlled - will cont to monitor Follow Up: Return if symptoms worsen or fail to improve, for Labs Today. | For: Labs Today Right wrist pain (Primary) - XR WRIST 3 OR MORE VIEWS Elevated TSH - TSH WITH FREE T4 IF INDICATED; Future; Expected date: 04/29/2023 Hyperglycemia - HEMOGLOBIN A1C; Future; Expected date: 04/29/2023 Right elbow pain - XR ELBOW 3 OR MORE VIEWS Elevated blood pressure, situational Follow Up: Return if symptoms worsen or fail to improve, for Labs Today. | For: Labs Today If needed, prefers contact by: Ok to leave message on phone: SUBJECTIVE: Nursing Notes: Karine Fontenot [facility] 04/29/23 1102 Signed Lisa Arauz is a 67 year old female who presents today for Chief Complaint Patient presents with Edema Pt states that her R hand has been swollen since 04/28/23. HPI: Lisa Arauz is a 67 year old female. Here for right hand complaint. Was shucking corn with her daughter last weekend and then yesterday woke up with right wrist pain and swelling, reaches up toelbow No fevers or chills Has not tried anything yet Last labs show elev sugar and tsh Latest Reference Range & Units 12/11/22 09:22 Triglycerides <=174 mg/dL 160 Cholesterol <200 mg/dL 144 Non-HDL Cholesterol <=159 mg/dL 107 HDL Cholesterol >49 mg/dL 37 (L) LDL Cholesterol <=129 mg/dL 75 Sodium 135 - 146 mmol/L 145 Potassium 3.5 - 5.1 mmol/L 4.5 Chloride 98 - 107 mmol/L 105 CO2 22 - 32 mmol/L 31 BUN 6 - 20 mg/dL 17 Creatinine 0.5 - 1.0 mg/dL 0.8 Estimated Glomerular Filtration Rate >=60 mL/min 86 Anion Gap 7 - 15 mmol/L 9 Glucose 70 - 120 mg/dL 123 (H) Calcium 8.4 - 10.2 mg/dL 9.4 Protein 6.0 - 8.3 g/dL 6.9 TSH 0.27 - 4.20 uIU/mL 7.38 (H) TSH WITH FREE T4 IF INDICATED Rpt ! T4, Free 0.9 - 1.7 ng/dL 0.9 CBC Rpt ! WBC 4.00 - 10.80 K/uL 6.74 HGB 12.0 - 15.3 g/dL 14.8 HCT 36.0 - 45.2 % 45.9 (H) MCV 81.5 - 97.5 fL 95.0 PLT 140 - 400 K/uL 189 Albumin 3.8 - 5.0 g/dL 4.5 AST 10 - 35 U/L 21 ALT 10 - 35 U/L 21 Alkaline Phosphatase 35 - 130 U/L 64 Bilirubin, Total <=1.2 mg/dL 0.7 (L): Data is abnormally low (H): Data is abnormally high !: Data is abnormal Rpt: View report in Results Review for more information Reviewed sources 1-labs as above Patient Active Problem List Diagnosis Code Menopause Z78.0 Hyperlipidemia E78.5 Nonallergic rhinitis J31.0 Body mass index (BMI) of 40.0 to 44.9 in adult (HCC) Z68.41 Hypertension I10 Gastroesophageal reflux disease K21.9 Mass of uterine adnexa N94.89 Sclerosing mesenteritis (HCC) K65.4 Current Outpatient Medications Medication Sig Dispense Refill [...] EVERY DAY IN THE MORNING 90Tablet 2 No current facility-administered medications for this visit. OBJECTIVE: BP 153/87 (BP Site: Left Arm, BP Position: Sitting, BP Cuff Size: Regular) | Pulse 85 | Temp 36.6 C (97.8 F) (Temporal Artery) | Resp 18 | Ht 1.575 m (5' 2") | Wt 108 kg (238 lb) | LMP 12/15/2002| SpO2 96% | BMI 43.53 kg/m | BSA 2.17 m Vitals reviewed and is mildly hypertensive likely due to pain / afebrile / and not tachycardic General: No acute distress. Neuro: Alert Pleasant & interactive. Respiratory: Good inspiratory effort, no labored breathing. MSK: active ROM is limited in right wrist due to pain and swelling, but passive ROM is in tact. Normal cap refill <2 sec. Point tenderness just distal to olecranon process. Point tenderness to styloid process on ulnar aspect of wrist, mild erythema and moderate swelling there. HEENT: Conjunctivae appear clear. No swelling noted face or lips. Skin: No rash visible on exposed skin areas, normal coloration & appears dry. Psych: Normal affect. Fluent speech. Elena Schrader MD [facility] [address] [facility] [id number] There are no Patient Instructions on file for this visit. documented in this encounter Nursing Notes * NGUYEN Peres - 04/29/2023 11:01 AM EDT Lisa Arauz is a 67 year old female who presents today for Chief Complaint Patient presents with Edema Pt states that her R hand has been swollen since 04/28/23. documented in this encounter Miscellaneous Notes * Result Encounter Note - Elena Schrader MD - 05/06/2023 8:42 AM EDT Letter sent - see wrist XR encounter documented in this encounter Plan of Treatment Upcoming Encounters Date Type Specialty Care Team Description 12/15[facility]2023 [facility] [address] [place] [address] Scheduled Procedures Name Priority Associated Diagnoses Date/Ti me COLONOSCOPY FLEXIBLE PROXIMA L DIAGNOSTIC Recall History of colonic polyps Health Maintenance Due Date Last Done Comments COVID-19 Vaccine (#1) 06/21/1956 Hepatitis C Screening 1974 Pneumococcal Vaccine: 65+ Years (1 - PCV) 2021 Zoster Vaccines (2 of 2) 02/19/2022 12/25/2021 Influenza Vaccine (FLU shot) (#1) 2023 07/28/2020, 06/01/2019, 06/26/2018, Additional history exists Depression Screening, Annual for Pts 12 and Over 12/12/2023 12/11/2022 GFR 12/12/2023 12/11/2022, 12/01, 07/19/2019, Additional history exists Mammogram 04/10/2024 04/10/2023, 03/02, 03/26/2021, Additional history exists DTaP,Tdap,and Td Vaccines (3 - Td or Tdap) 06/13/2024 06/13/2014, 12/28/2008, 01/06/1999 DXA Scan 09/18/2025 09/18/2022, 01/30, 11/12/2005 Albumin/Creatinine Ratio 12/11/2025 12/11/2022 Diabetes Screening 04/29/2026 04/29/2023, 0 12/11/2022, 12/25/2021, Additional history exists Lipid Panel 12/12/2027 12/11/2022, [...] Procedure Name Priority Date/Time Associated Diagnosis Comments XR WRIST 3 OR MORE VIEWS Routine 04/29/2023 12:57 PM EDT Right wrist pain XR ELBOW 3 OR MORE VIEWS Routine 04/29/2023 12:57 PM EDT Right elbow pain documented in this encounter Results * XR WRIST 3 OR MORE VIEWS (04/29/2023 12:57 PM EDT) Anatomical Region Laterality Modality Upper Extremity, Wrist Computed Radiography 04/29/2023 12:5 9 PM EDT Impressions 05/01/2023 2:46 PM EDT IMPRESSION: No acute findings. THIS DOCUMENT HAS BEEN ELECTRONICALLY SIGNED BY TYSON FAULKNER MD Narrative 05/01/2023 2:46 PM EDT PROCEDURE INFORMATION: Exam: XR Right Wrist Exam date and time: 04/29/2023 12:59 PM Age: 67 years old Clinical indication: Pain in right wrist; Additional info: Wrist and elbow pain and swelling TECHNIQUE: Imaging protocol: Radiologic exam of the right wrist. Views: 3 or more views. COMPARISON: No relevant prior studies available. FINDINGS: Bones/joints: No acute bony abnormality. Mild degenerative changes at 1st CMC joint. Prior traumatic changes near ulnar-styloid process. Soft tissues: Normal. Procedure Note Tyson Faulkner MD - 05/01/2023 PROCEDURE INFORMATION: Exam: XR Right Wrist Exam date and time: 04/29/2023 12:59 PM Age: 67 years old Clinical indication: Pain in right wrist; Additional info: Wrist and elbowpain and swelling TECHNIQUE: Imaging protocol: Radiologic exam of the right wrist. Views: 3 or more views. COMPARISON: No relevant prior studies available. FINDINGS: Bones/joints: No acute bony abnormality. Mild degenerative changes at 1stCMC joint. Prior traumatic changes near ulnar-styloid process. Soft tissues: Normal. IMPRESSION IMPRESSION: No acute findings. THIS DOCUMENT HAS BEEN ELECTRONICALLY SIGNED BY TYSON FAULKNER MD Elena Schrader MD RADIOLOGY (R AD GENERAL) * XR ELBOW 3 OR MORE VIEWS (04/29/2023 12:57 PM EDT) Anatomical Region Laterality Modality Upper Extremity, Elbow Computed Radiography 04/29/2023 1:01 PM EDT Impressions 05/01/2023 2:46 PM EDT IMPRESSION: No acute findings. THIS DOCUMENT HAS BEEN ELECTRONICALLY SIGNED BY TYSON FAULKNER MD Narrative 05/01/2023 2:46 PM EDT PROCEDURE INFORMATION: Exam: XR Right Elbow Exam date and time: 04/29/2023 1:01 PM Age: 67 years old Clinical indication: Pain in right elbow; Additional info: Wrist and elbow pain and swelling TECHNIQUE: Imaging protocol: Radiologic exam of the right elbow. Views: 3 or more views. COMPARISON: DX XR WRIST 3 OR MORE VIEWS 04/29/2023 12:59 PM FINDINGS: Bones/joints: No acute bony abnormality. Soft tissues: Normal. Procedure Note Tyson Faulkner MD - 05/01/2023 PROCEDURE INFORMATION: Exam: XR Right Elbow Exam date and time: 04/29/2023 1:01 PM Age: 67 years old Clinical indication: Pain in right elbow; Additional info: Wrist and elbowpain and swelling TECHNIQUE: Imaging protocol: Radiologic exam of the right elbow. Views: 3 or more views. COMPARISON: DX XR WRIST 3 OR MORE VIEWS 04/29/2023 12:59 PM FINDINGS: Bones/joints: No acute bony abnormality. Soft tissues: Normal. IMPRESSION IMPRESSION: No acute findings. THIS DOCUMENT HAS BEEN ELECTRONICALLY SIGNED BY TYSON FAULKNER MD Elena Schrader MD RADIOLOGY (R AD GENERAL) * (ABNORMAL) TSH WITH FREE T4 IF INDICATED (04/29/2023 11:52 AM EDT) TSH 13.20(H) 0.27 - 4.20 uIU/mL 04/30/2023 12:17 AM EDT LABORATORY [facility] [place] Blood Venous blood specimen / Unknown Venipuncture / Unknown 04/29/2023 11:52 AM EDT 04/29/2023 11:52 AM EDT Elena Schrader MD LAB BLOOD OR DERABLES [facility]ATORY [facility] [place] [address] [place] [address] * (ABNORMAL) HEMOGLOBIN A1C (04/29/2023 11:52 AM EDT) Hemoglobin A1C 6.5(H) 4.0 - 5.6 % 04/30/2023 12:11 AM EDT LAB[facility]ATORY [facility] [place] Comment:The use of HbA1c to monitor glycemic status is based on normal hemoglobin and HbA composition. This test should not be used in patients with abnormal hemoglobin that affects the half life of the red blood cell or the in vivo glycation rates. Estimated Average Glucose 140(H) <126 mg/dL 04/30/2023 12:11 AM EDT LABORATORY [facility] Blood Venous blood specimen / Unknown Venipuncture / Unknown 04/29/2023 11:52 AM EDT 04/29/2023 11:52 AM EDT Elena Schrader MD LAB BLOOD OR DERABLES LABORATORY [facility] [address] [place] [address] documented in this encounter Visit Diagnoses Diagnosis Right wrist pain- Primary Pain in joint, forearm Elevated TSH Other abnormal blood chemistry Hyperglycemia Other abnormal glucose Right elbow pain Pain in joint, upper arm Elevated blood pressure, situational Elevated blood pressure reading without diagnosis of hypertension documented in this encounter Care Teams Transportation Operations Manager Relationship Specialty Start Date End Date Juan Badillo MD [facility] [place] [address] PCP - General 06/01/00 documented as of this encounter
--- OUTSIDE RECORDS SUMMARY | 2023-10-13 15:58 | External Medical Summary | Summary of Care ---
Author Name Unknown Organization [facility] Address [address] [place] [place] [address] Phone [phone] Care Team Providers Care Multiple Cut Off Saw Operator Name Role Phone Jaun Badillo MD Primary Care Provider +1- [phone] Reason for Visit * Reason Comments Outpatient Testing Encounter Details Date Type Department Care Team Description 04/29/2023 Laboratory Laboratory, [place] [address] [place] [address] [place] [address] [place] [address] Hyperglycemia; Elevated TSH Allergies No known active allergiesdocumented as of this encounter (statuses as of 04/29/2023) Medications Medication Sig Dispensed Refills Start Date [...] as of this encounter (statuses as of 04/29/2023) Active Problems Problem Noted Date Mass of uterine adnexa 04/29/2023 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 Hypertension 12/10/2021 Gastroesophageal reflux disease 12/11/19 22 Body mass index (BMI) of 40.0 to 44.9 in adult 06/14/2019 Overview: Per Obesity protocol - bmi= 34.65 10/14/12 Nonallergic rhinitis 08/29/2014 Hyperlipidemia 10/14/2012 Menopause 10/01/2005 documented as of this encounter (statuses as of 04/29/2023) Resolved Problems Problem Noted Date Resolved Date [...] as of this encounter (statuses as of 04/29/2023) Immunizations Name Administration Dates Next Due H1N1 [...] Date Smoking Tobacco: Never Smokeless Tobacco: Never Alcohol Use Standard Drinks/Week [...] Team Description 12/15/2023 Office Visit Family Medicine Juan Badillo MD [address] [place], [place] [id number] Pending Results Name Type Priority Associated Diagnoses Date /Time HEMOGLOBIN A1C Lab Routine Hyperglycemia 04/29/2023 11:52 AM EDT TSH WITH FREE T4 IF INDICATED Lab Routine Elevated TSH 04/29/2023 11:52 AM EDT Scheduled Procedures Name Priority Associated Diagnoses Date/Ti [...] 11/12/2005 Albumin/Creatinine Ratio 12/11/2025 12/11/2022 Diabetes Screening 12/11/2025 12/11/2022, 0 12/25/2021, 07/19/2019, Additional history exists Lipid Panel 12/12/2027 12/11/2022, [...] Not on filedocumented as of this encounter Visit Diagnoses Diagnosis Hyperglycemia Other abnormal glucose Elevated TSH Other abnormal blood chemistry documented in this encounter Care Teams Multiple Cut Off Saw Operator Relationship Specialty Start Date End Date Juan Badillo MD [address] [place] [address] PCP - General 06/01/00 documented as of this encounter
--- OUTSIDE RECORDS SUMMARY | 2023-10-13 15:58 | External Medical Summary | Summary of Care ---
Author Name Unknown Organization [facility] Address [address] [facility] [place] [address] Phone [phone] Care Team Providers Care Fractionation Supervisor Name Role Phone Juan Badillo MD Primary Care Provider +1- [phone] Reason for Visit * Reason Comments Edema Pt states that her R hand has been swollen since 04/28/23. Encounter Details Date Type Department Care Team Description 04/29/2023 Office Visit [facility] [address] [place] [address] Elena Schrader MD [address] [place] [address] Right wrist pain*; Elevated TSH; [...] on phone: SUBJECTIVE: Nursing Notes: [facility] 1102 Signed Lisa Arauz is a [...] Normal affect. Fluent speech. Elena Schrader MD [facility] [address] [facility] [address] There are no Patient Instructions on file for this visit. documented in this encounter Nursing Notes * NGUYEN Peres - 04/29/2023 11:01 AM EDT Lisa Arauz is a 67 year old female who presents today for Chief Complaint Patient presents with Edema Pt states that her R hand has been swollen since 04/28/23. documented in this encounter Plan of Treatment Upcoming Encounters Date Type Specialty Care Team Description 12/15/2023 Office Visit Family Medicine Juan Badillo MD [address] [place] [address] Pending Results Name Type Priority Associated Diagnoses Date /Time HEMOGLOBIN A1C Lab Routine Hyperglycemia 04/29/2023 11:52 AM EDT TSH WITH FREE T4 IF INDICATED Lab Routine Elevated TSH 04/29/2023 11:52 AM EDT XR ELBOW 3 OR MORE VIEWS Medical Imaging Routine Right elbow pain 04/29/2023 12:57 PM EDT XR WRIST 3 OR MORE VIEWS Medical Imaging Routine Right wrist pain 04/29/2023 12:57 PM EDT Scheduled Orders Name Type Priority Associated Diagnoses Orde r Schedule HEMOGLOBIN A1C Lab Routine Hyperglycemia Expected: 04/29/2023 (Approximate), Expires: 04/28/2024 TSH WITH FREE T4 IF INDICATED Lab Routine Elevated TSH Expected: 04/29/2023 (Approximate), Expires: 04/28/2024 Scheduled Procedures Name Priority Associated Diagnoses Date/Ti [...] as of this encounter Visit Diagnoses Diagnosis Right wrist pain- Primary Pain in joint, forearm Elevated TSH Other abnormal blood chemistry Hyperglycemia Other abnormal glucose Right elbow pain Pain in joint, upper arm Elevated blood pressure, situational Elevated blood pressure reading without diagnosis of hypertension documented in this encounter Care Teams Fractionation Supervisor Relationship Specialty Start Date End Date Juan Badillo MD [address] [place] [facility] [place] [address] PCP - General 06/01/00 documented as of this encounter
--- OUTSIDE RECORDS SUMMARY | 2023-10-13 15:58 | External Medical Summary ---
Author Name Unknown Address Unknown Organization [id number]:LABORATORY [facility] [place] - [address] [facility] [address] Laboratory Report Ordering Provider Test Date Status SARITA ALBERTO 04/29/2023 11:52:01 Final Observation Date Value Abnormality Reference (Units ) Status HbA1C 04/29/2023 11:52:01 6.5 Above high normal 4. 0-5.6 (%) Final The use of HbA1c to monitor glycemic status is based on normal hemoglobin and HbA composition. This test should not be used in patients with abnormal hemoglobin that affects the half life of the red blood cell or the in vivo glycation rates. Glucose, estimated average 04/29/2023 11:52:01 140 Above high normal <126 (mg/dL) Naseem mathews Performing Location LABORATORY [facility] [place] - [address] [facility] [address]
--- OUTSIDE RECORDS SUMMARY | 2023-10-13 15:58 | External Medical Summary | Summary of Care ---
Author Name Unknown Organization [facility] Address [address] [place] [address] Phone [phone] Care Team Providers Care Political Consultant Name Role Phone Juan Badillo MD Primary Care Provider [phone]- [phone] Encounter Details Date Type Department Care Team (Late st Contact Info) Description 08/26/2023 Orders Only Outcomes Research Department [address] [place], [place] [id number] Divya Kaufman CHRA [facility] Research Other*[id number] Allergies No known active allergiesdocumented as of this encounter (statuses as of 08/26/2023) Medications Medication Sig Dispensed Refills Start Date [...] Active Levothyroxine Sodium 75 MCG Oral Tablet (Levoxyl)Indication s:Acquired hypothyroidism,Hype rglycemia Take 1 Tablet by mouth in the morning. (at least 30 min prior to breakfast or other meds). 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 Hypertension 12/10/2021 Gastroesophageal reflux disease 12/10/2021 Body mass index (BMI) of 40.0 to 44.9 in adult 1 Overview: Per Obesity protocol - bmi= 34.65 10/14/12 Nonallergic rhinitis 08/29/2014 Hyperlipidemia 10/14/2012 Menopause 10/01/2005 documented as of this encounter (statuses as of 08/26/2023) Resolved Problems Problem Noted Date Diagnosed Date [...] as of this encounter (statuses as of 08/26/2023) Immunizations Name Administration Dates Next Due H1N1 [...] Care Team (Late st Contact Info) Description 12/15/2023 8:20 AM EDT [facility] [address] [facility] [address] Juan Badillo MD [address] [facility] [place] [place] [address] Scheduled Orders Name Type Priority Associated Diagnoses Orde r Schedule MYCODE SUBSEQUENT ADULT Lab Routine My[facility] Research Other*[id number] Every 6 Months for 2 Occurrences starting 08/26/2023 until 09/14/2024 Scheduled Procedures Name Priority Associated Diagnoses Date/Ti me COLONOSCOPY FLEXIBLE PROXIMA L DIAGNOSTIC Recall History of colonic polyps Health Maintenance Due Date Last Done Comments COVID-19 Vaccine (#1) 06/21/1956 Hepatitis C Screening 1974 Pneumococcal Vaccine: 65+ Years (1 - PCV) 2021 Zoster Vaccines (2 of 2) 02/19/2022 12/25/2021 Influenza Vaccine (FLU shot) (#1) 2023 07/28/2020, 06/01/2019, 06/26/2018, Additional history exists Depression Screening 12/12/2023 12/11/2022 GFR 12/12/2023 12/11/2022, 12/01, 07/19/2019, Additional history exists Mammogram 04/10/2024 04/10/2023, 03/02, 03/26/2021, Additional history exists TSH 04/29/2024 04/29/2023, 11/30, [...] as of this encounter Visit Diagnoses Diagnosis [facility] Research Other*[id number] documented in this encounter Care Teams Political Consultant Relationship Specialty Start Date End Date Juan Badillo MD [address] [place] [address] PCP - General 06/01/00 documented as of this encounter
--- OUTSIDE RECORDS SUMMARY | 2023-10-13 15:58 | External Medical Summary | Summary of Care ---
Author Name Unknown Organization [facility] Address [address] [place] [place] [address] Phone [phone] Care Team Providers Care Sports Book Writer Name Role Phone Juan Badillo MD Primary Care Provider [phone]- [phone] Encounter Details Date Type Department Care Team Description 05/06/2023 Telephone [facility] [address] [place] [address] Elena Schrader MD [address] [place] [address] Allergies No known active allergiesdocumented as of [...] encounter Miscellaneous Notes * Telephone Encounter - Elena Schrader MD - 05/06/2023 8:24 AM EDT Also sent a letter New dx hypothyroidism and hyperglycemia Called pt and left VM - if calls back, "You have a new diagnosis of hypothyroidism - your thyroid is under active - this needs supplemented with thyroid hormone called levothyroxine - I've sent this to your pharmacy- take first thing before food or other meds by about an hour - repeat blood work in 2 months - we will recheck your sugar too because that is in the diabetic range as of now. Watch your food intake, choose more veggies, fruits and meat, and try to avoid breads, pastas and candy/pastries or soda. " AG documented in this encounter Plan of Treatment Upcoming Encounters Date Type Specialty Care Team Description 12/15/2023 Office Visit Family Medicine Juan Badillo MD [address] [place] [address] Scheduled Orders Name Type Priority Associated Diagnoses Orde r Schedule TSH WITH FREE T4 IF INDICATED Lab Routine Acquired hypothyroidism Hyperglycemia Expected: 07/06/2023, Expires: 06/05/2024 HEMOGLOBIN A1C Lab Routine Acquired hypothyroidism Hyperglycemia Expected: 07/06/2023 (Approximate), Expires: 06/05/2024 Scheduled Procedures Name Priority Associated Diagnoses Date/Ti [...] as of this encounter Visit Diagnoses Diagnosis Acquired hypothyroidism- Primary Unspecified hypothyroidism Hyperglycemia Other abnormal glucose documented in this encounter Care Teams Sports Book Writer Relationship Specialty Start Date End Date Juan Badillo MD [address] [place] [address] PCP - General 06/01/00 documented as of this encounter
--- OUTSIDE RECORDS SUMMARY | 2023-10-13 15:58 | External Medical Summary | Summary of Care ---
Author Name Unknown Organization [facility] Address [address] [facility] [place] [address] Phone [phone] Care Team Providers Care Supervisor Specialty Plant Name Role Phone Juan Badillo MD Primary Care Provider +1- [phone] Reason for Visit * Reason Onset Date Comments Health Maintenance 07/16/2023 Encounter Details Date Type Department Care Team (Late st Contact Info) Description 07/16/2023 Telephone [facility] [address] [place] [address] Juan Badillo MD [address] [place] [address] Health Maintenance Allergies No known active allergiesdocumented as of this encounter (statuses as of 07/16/2023) Medications Medication Sig Dispensed Refills Start Date [...] as of this encounter (statuses as of 07/16/2023) Active Problems Problem Noted Date Diagnosed Date Mass of uterine adnexa 04/29/2023 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 Hypertension 12/10/2021 Gastroesophageal reflux disease 12/10/2021 Body mass index (BMI) of 40.0 to 44.9 in adult 1 Overview: Per Obesity protocol - bmi= 34.65 10/14/12 Nonallergic rhinitis 08/29/2014 Hyperlipidemia 10/14/2012 Menopause 10/01/2005 documented as of this encounter (statuses as of 07/16/2023) Resolved Problems Problem Noted Date Diagnosed Date [...] as of this encounter (statuses as of 07/16/2023) Immunizations Name Administration Dates Next Due H1N1 2009 Influenza, IM 09/05/2009 SEASONAL INFLUENZA, PF, 6 M & Above, IM , (FLULAVAL or FLUZONE) 06/01/2019 Seasonal Influenza, Quadriva lent, No Preserve, [...] encounter Miscellaneous Notes * Telephone Encounter - Becky Enriquez LPN - 07/16/2023 9:30 AM EST Care Gaps Comprehensive Care Outreach Last Office/Telemedicine Visit: 04/29/2023 (in office), Visit date not found (telemedicine) Next Office Visit: 12/15/2023 Hemoglobin AIC Results: Lab Results Component Value Date/Time HEMOGLOBIN A1C - [facility] 6.5 (H) 04/29/2023 11:52 AM Reviewed Health Maintenance below: Health Maintenance Topic Date Due COVID-19 Vaccine (1) Never done Hepatitis C Screening Never done Pneumococcal Vaccine: 65+ Years (1 - PCV) Never done Zoster Vaccines (2 of 2) 02/19/2022 Influenza Vaccine (FLU shot) (1) 05/02/2023 awv Care Gap Outreach Action Taken: Left message documented in this encounter Plan of Treatment Upcoming Encounters Date Type Department Care Team (Late st Contact Info) Description 12/15/2023 8:20 AM EDT Office Visit [facility] [address] [place] [address] Juan Badillo MD [address] [place] [address] Scheduled Procedures Name Priority Associated [...] filedocumented as of this encounter Care Teams Supervisor Specialty Plant Relationship Specialty Start Date End Date Juan Badillo [facility] [address] [facility] [address] PCP - General 06/01/00 documented as of this encounter
--- OUTSIDE RECORDS SUMMARY | 2023-10-13 15:58 | External Medical Summary ---
Author Name Unknown Address Unknown Organization [id number]:[facility] [place] [address] [place] [address] Laboratory Report Ordering Provider Test Date Status SARITA ALBERTO 04/29/2023 11:52:01 Final Observation Date Value Abnormality Reference (Units ) Status T4, Free 04/29/2023 11:52:01 0.8 Below low normal 0.9 -1.7 (ng/dL) Final Performing Location [facility] - [address] [place] [address]
--- NOTE | 2023-10-13 16:28 | Cardiology Consultation ---
Date of Consultation October 13, 2023 Assessment & Plan (1) New onset atrial fibrillation: (2) Chest pain: (3) HLD (hyperlipidemia): (4) Hypertension: Plan 67-year-old female presents after having developed symptoms of chest pressure palpitations and shortness of breath at low-level activity this morning. Symptoms persisted and ultimately resulted in ER presentation. Patient found to be in atrial fibrillation with elevated ventricular response. Pain eased with 1 sublingual nitroglycerin and atrial fibrillation rate slowed with single dose of IV diltiazem with ultimate spontaneous conversion to sinus rhythm Patient referred for further management. Issues addressed as follows 1. New onset atrial fibrillation: Patient spontaneously converted to sinus rhythm. Agree with beginning metoprolol succinate 25 mg p.o. daily for rhythm control and to complete GDMT for cardiovascular risk (beta-avni, LYNNE inhibitor, statin, antiplatelet therapy) IV heparin begun for anticoagulant and will ultimately plan on transitioning to Eliquis. Patient with [id number] 2 score of 4. Discussed in detail with patient Records reflect concerns regarding possible obstructive sleep apnea. Sleep evaluation warranted 2. Chest pain: Symptoms concerning for angina with relief with sublingual nitroglycerin. Reviewed outpatient records/EKGs. EKG 2019 with anterior T wave inversion with chest pain hypertension Will follow serial EKG and cardiac enzyme Keep n.p.o. after midnight. Will require further ischemic restratification. Continue risk factor modification as already begun History of Present Illness Reason for Consultation: New onset atrial fibrillation Attending Physician: Dr. Collier History of Present Illness Patient is a 67-year-old female without prior history of cardiac disease but with underlying medical concerns which include 1. Hypertension 2. Type 2 diabetes mellitus 3. Hyperlipidemia on therapy 4. Obesity 5. Suspected obstructive sleep apnea Patient this morning developed symptoms of chest pressure and shortness of robbie th with moderate radiation to the shoulders and neck. It is occurred at low- level activity and persistent resulting in ER presentation. On presentation patient found to be in atrial fibrillation rates 130 to 150 bpm. Patient was given 1 sublingual nitroglycerin due to chest pain, aspirin and IV diltiazem with slowing of heart rate and marked improvement in symptoms. After lab work and observation patient spontaneously converted to sinus rhythm. Currently asymptomatic. No prior history of cardiac arrhythmias, myocardial infarction, congestive heart failure. Cardiovascular risk factors as above plus family history of coronary disease in father Patient denies history rheumatic fever scarlet fever renal or hepatic disease. No history of TIA or stroke. No bleeding difficulties melena medic easier dysuria hematuria. Weight has been trending upward Recently begun metformin and Trulicity to gain control of glucoses and weight Currently comfortable in sinus rhythm rate 80 beats per Allergies Allergy/AdvReac Type Severity Reaction Status Date / Time No Known Allergies AdvReac Unknown Unverified 10/13/23 13:14 Home Medications Medication Instructions Recorded Confirmed Type atorvastatin 20 mg tablet 20 mg PO QAM 10/13/23 10/13/23 History calcium carbonate 600 mg-vitamin 2 tab PO DAILY 10/13/23 10/13/23 History D3 10 mcg (400 unit) tablet (Calcium 600 + D(3)) dulaglutide 0.75 mg/0.5 mL 0.75 mg subcut .WEEK 10/13/23 10/13/23 History subcutaneous pen injector (Trulicity) famotidine 40 mg tablet 40 mg PO HS 10/13/23 10/13/23 History fexofenadine 180 mg tablet 180 mg PO DAILY 10/13/23 10/13/23 History fluticasone propionate 50 2 spray intranasal DIRECTED PRN 10/13/23 10/13/23 History mcg/actuation nasal Nasal Congestion spray,suspension (Flonase Allergy Relief) [id number] C-Mn 500 1 cap PO DAILY 10/13/23 10/13/23 History mg-400 mg capsule levothyroxine 75 mcg tablet 75 mcg PO QAM 10/13/23 10/13/23 History lisinopril 10 1 tab PO QAM 10/13/23 10/13/23 History mg-hydrochlorothiazide 12.5 mg tablet meclizine 25 mg tablet 25 mg PO TID PRN .dizzyness 10/13/23 10/13/23 History metformin 500 mg tablet,extended 500 mg PO QAM 10/13/23 10/13/23 History release 24 hr multivitamin 1 tab PO DAILY 10/13/23 10/13/23 History omega-3 fatty acids 1,000 mg 1,000 mg PO DAILY 10/13/23 10/13/23 History capsule Patient History Medical History Chest pain Non-insulin dependent type 2 diabetes mellitus New onset atrial fibrillation Acid reflux HLD (hyperlipidemia) Hypertension Surgical History History of tubal ligation S/P ankle ligament repair Family History Father Coronary heart disease Diabetes Other No pertinent family history in first degree relatives Social History Smoking Status: Never smoker Preferred Language: Zimbabwean Feels Safe at Home: Yes Review of Systems Review of Systems: All systems reviewed & are unremarkable except as noted in HPI & below Physical Exam Constitutional: WD/WN, vitals as above + obese; no acute distress Eyes: PERRL, conjunctivae normal, anicteric sclerae ENMT: external ear and nose normal, oropharynx normal Neck: trachea midline, no thyromegaly + thick neck Respiratory: normal respiratory effort, lungs clear to auscultation Cardiovascular: Rate/Rhythm: regular rate and regular rhythm Heart Sounds: normal S1 and normal S2; no gallop and no murmur Palpation: normal PMI Vessels: normal carotid upstroke and radial pulses present; no JVD and no carotid bruit Extremities: no edema Gastrointestinal (Abdomen): normal bowel sounds, soft, nontender, no hepatosplenomegaly Musculoskeletal: no cyanosis or clubbing, extremities motor strength 5/5 Skin: no rashes, warm and dry Neurologic: PERRL, EOMI, accommodation nl, no face palsy, no dysarthria Psychiatric: A+Ox3, euthymic affect Results & Data Vital Signs (Past 12 Hours) Vital Signs Temp Pulse Resp BP Pulse Ox O2 Del Method 10/13/23 13:45 104 H 20 95 10/13/23 13:30 92 H 18 95 10/13/23 13:30 127/88 10/13/23 13:17 90 18 95 10/13/23 13:17 107/88 10/13/23 13:00 99 H 18 94 10/13/23 13:00 114/68 10/13/23 12:45 138/78 10/13/23 12:45 96 H 24 93 10/13/23 12:36 86 10/13/23 12:34 99 H 20 93 10/13/23 12:15 98 Room Air 10/13/23 11:38 36.7 C 117 H 20 142/85 H 95 Room Air Laboratory Results Laboratory Results - last 24 hr 10/13/23 10/13/23 12:07 15:02 WBC 8.88 RBC 5.71 H Hgb 17.5 H Hct 50.3 H MCV 88.1 MCH 30.6 MCHC 34.8 RDW Std Deviation 40.4 RDW Coeff of Ahsan 12.5 Plt Count 221 MPV 11.0 Immature Gran % (Auto) 0.6 Neut % (Auto) 61.1 Lymph % (Auto) 29.5 Charles % (Auto) 6.1 Eos % (Auto) 2.1 Baso % (Auto) 0.6 Neut # (Auto) 5.43 Lymph # (Auto) 2.62 Charles # (Auto) 0.54 Eos # (Auto) 0.19 Baso # (Auto) 0.05 Immature Gran # (Auto) 0.05 PT 10.5 INR 1.0 APTT 26 PTT Ratio 0.9 D-Dimer 400 Sodium 139 Potassium 4.0 Chloride 104 Carbon Dioxide 28 Anion Gap 7 BUN 16 Creatinine 0.83 Est Cr Clr Drug Dosing 78.0 Est GFR ( Amer) 85.2 Est GFR (Non-Af Amer) 73.5 BUN/Creatinine Ratio 19.3 Glucose 196 H Calcium 9.6 Magnesium 1.7 Total Bilirubin 0.7 AST 25 ALT 27 Alkaline Phosphatase 60 Troponin I High Sens 7.6 9.3 B-Natriuretic Peptide 25 Total Protein 8.0 Albumin 4.7 Globulin 3.3 Albumin/Globulin Ratio 1.4 TSH 9.721 H Diagnostic Findings Echocardiogram preliminary: Moderate left hypertrophy with normal wall motion and no significant valvular disease normal left atrial size ECG Additional Comments: EKG on presentation 10/13/2023: (After treatment) atrial fibrillation at 94 bpm with poor progression across to enter precordial
[2023-10-13] MEDS: HEPARIN SOD (PORCINE) 1000 UNIT/ML IV ONE (16:36)
[2023-10-13] MEDS: HEPARIN SODIUM/DEXTROSE 25,000 UNITS/500 ML BAG IV SCH (16:37)
[2023-10-13] MEDS: Heparin IV Adult Wt-Based Standard w/ INITIAL Bolus Protocol IV STA (16:58)
[2023-10-13] MEDS: HEPARIN 25000 UNIT/500 ML D5W IV ONE (16:59)
[2023-10-13] MEDS: HEPARIN SOD (PORCINE) 1000 UNIT/ML ONE (16:59)
--- NOTE | 2023-10-13 18:26 | Emergency Department Note ---
History of Present Illness General Chief Complaint: Chest Pain Stated Complaint: CHEST PAIN, LOWER BACK PAIN, SOB History of Present Illness Provider Complaint: chest pain Onset (ago): day(s) 1 Duration: progressively worsening Onset: during rest Pain Location: substernal and left chest Pain Radiation: none Severity: moderate Maximum Pain Intensity: 7 Current Pain Intensity: 7 Quality: + aching and + dull Relieved By: + nothing Exacerbated By: + nothing Context: no recent illness, no recent surgery, no recent travel, no trauma/injury or no history of DVT/PE Associated symptoms: + dyspnea and + palpitations; no nausea, no vomiting, no syncope, no fever, no cough or no leg swelling Home Medications Medication Instructions Recorded Confirmed Type atorvastatin 20 mg tablet 20 mg PO QAM 10/13/23 10/13/23 History calcium carbonate 600 mg-vitamin 2 tab PO DAILY 10/13/23 10/13/23 History D3 10 mcg (400 unit) tablet (Calcium 600 + D(3)) dulaglutide 0.75 mg/0.5 mL 0.75 mg subcut .WEEK 10/13/23 10/13/23 History subcutaneous pen injector (Trulicity) famotidine 40 mg tablet 40 mg PO HS 10/13/23 10/13/23 History fexofenadine 180 mg tablet 180 mg PO DAILY 10/13/23 10/13/23 History fluticasone propionate 50 2 spray intranasal DIRECTED PRN 10/13/23 10/13/23 History mcg/actuation nasal Nasal Congestion spray,suspension (Flonase Allergy Relief) [id number] C-Mn 500 1 cap PO DAILY 10/13/23 10/13/23 History mg-400 mg capsule levothyroxine 75 mcg tablet 75 mcg PO QAM 10/13/23 10/13/23 History lisinopril 10 1 tab PO QAM 10/13/23 10/13/23 History mg-hydrochlorothiazide 12.5 mg tablet meclizine 25 mg tablet 25 mg PO TID PRN .dizzyness 10/13/23 10/13/23 History metformin 500 mg tablet,extended 500 mg PO QAM 10/13/23 10/13/23 History release 24 hr multivitamin 1 tab PO DAILY 10/13/23 10/13/23 History omega-3 fatty acids 1,000 mg 1,000 mg PO DAILY 10/13/23 10/13/23 History capsule Allergies Allergy/AdvReac Type Severity Reaction Status Date / Time No Known Allergies AdvReac Unknown Unverified 10/13/23 13:14 Past Med/Surg History Medical History Chest pain Non-insulin dependent type 2 diabetes mellitus New onset atrial fibrillation Acid reflux HLD (hyperlipidemia) Hypertension Surgical History History of tubal ligation S/P ankle ligament repair Family History Father Coronary heart disease Diabetes Other No pertinent family history in first degree relatives Social History Smoking Status: Never smoker Preferred Language: Italian Feels Safe at Home: Yes Physical Exam Vital Signs Vital Signs - 24 hr 10/13/23 11:38 10/13/23 11:38 10/13/23 12:15 Temperature 36.7 C Temperature Source Temporal Artery Scan Pulse Rate 117 H Pulse Rate from SpO2 Sensor Respiratory Rate 20 Respiratory Effort / Characteristics SOB on Exertion Blood Pressure 142/85 H Blood Pressure Mean 104 Pulse Oximetry 95 98 Oxygen Delivery Method Room Air Room Air Sepsis Recent Fever Within 48 Hours No Sepsis New/Unexplained Change in Mental Status N/A Sepsis Action Taken by Nursing No Action Required 10/13/23 12:34 10/13/23 12:36 10/13/23 12:45 Temperature Temperature Source Pulse Rate 99 H 86 96 H Pulse Rate from SpO2 Sensor 100 H 93 H Respiratory Rate 20 24 Respiratory Effort / Characteristics Blood Pressure Blood Pressure Mean Pulse Oximetry 93 93 Oxygen Delivery Method Sepsis Recent Fever Within 48 Hours Sepsis New/Unexplained Change in Mental Status Sepsis Action Taken by Nursing 10/13/23 12:45 10/13/23 13:00 10/13/23 13:00 Temperature Temperature Source Pulse Rate 99 H Pulse Rate from SpO2 Sensor 100 H Respiratory Rate 18 Respiratory Effort / Characteristics Blood Pressure 138/78 114/68 Blood Pressure Mean 95 77 Pulse Oximetry 94 Oxygen Delivery Method Sepsis Recent Fever Within 48 Hours Sepsis New/Unexplained Change in Mental Status Sepsis Action Taken by Nursing 10/13/23 13:17 10/13/23 13:17 10/13/23 13:30 Temperature Temperature Source Pulse Rate 90 Pulse Rate from SpO2 Sensor 96 H Respiratory Rate 18 Respiratory Effort / Characteristics Blood Pressure 107/88 127/88 Blood Pressure Mean 103 92 Pulse Oximetry 95 Oxygen Delivery Method Sepsis Recent Fever Within 48 Hours Sepsis New/Unexplained Change in Mental Status Sepsis Action Taken by Nursing 10/13/23 13:30 10/13/23 13:45 Temperature Temperature Source Pulse Rate 92 H 104 H Pulse Rate from SpO2 Sensor 94 H 110 H Respiratory Rate 18 20 Respiratory Effort / Characteristics Blood Pressure Blood Pressure Mean Pulse Oximetry 95 95 Oxygen Delivery Method Sepsis Recent Fever Within 48 Hours Sepsis New/Unexplained Change in Mental Status Sepsis Action Taken by Nursing Physical Exam GENERAL: oriented to person, place, and time. appears well-developed and well- nourished. HENT: Exam performed. - Head: Normocephalic and atraumatic. EYES: Conjunctivae and EOM are normal. Right eye exhibits no discharge. Left eye exhibits no discharge. No scleral icterus. NECK: Normal range of motion. Neck supple. No JVD present. CV: Tachycardic rate, irregular rhythm, normal heart sounds and intact distal pulses. There is no peripheral edema. Palpable radial pulses bue. PULM/CHEST: Effort normal and breath sounds normal. No respiratory distress. No stridor. no wheezes. no rales. ABD: The abdomen is soft. There is no tenderness. NEURO: Motor and sensation grossly intact. SKIN: Skin is warm and dry. He is not diaphoretic. PSYCH: normal mood and affect. Behavior is normal. Judgment and thought content normal. Course Course 1200: The patient was evaluated in room A1. A complete history and physical exam was performed Cardiac monitoring: An order was placed for continuous cardiac monitoring. The monitor shows a rate of 140-160 with sinus tachycardia rhythm interpreted by me Patient found to be in A-fib RVR. Cardizem bolus ordered for the patient 1218: Status post Cardizem bolus patient's ventricular rate is improved into the 90s. Patient still in atrial fibrillation. Patient reports that her chest pain is resolved status post Cardizem bolus and 1 sublingual nitroglycerin. 1410: Vital signs stable. Patient still in atrial fibrillation. Ventricular rate controlled. Labs and imaging within normal limits. Patient be admitted to the [facility] team spoke with Shannon who stated to admit to Dr. Collier. Administered Medications Heparin Sodium/Dextrose (Heparin Sodium/Dextrose) 25,000 units in 500 mls @ 27 mls/hr IV .[id number] [facility]; Protocol Stop: 11/12/23 16:29 Last Admin: 10/13/23 16:37 Dose: 1,350 units/hr, 27 mls/hr Documented By: ANIKA Co-signed By: JAIR Discontinued Medications Aspirin (Aspirin Chew 324 Mg) 324 mg PO NOW STA Stop: 10/13/23 11:41 Last Admin: 10/13/23 11:53 Dose: 324 mg Documented By: SEVERINO Diltiazem HCl (Diltiazem Hcl 5 Mg/Ml 5 Ml Vial) Confirm Administered Dose 25 mg IV .STK-MED ONE Stop: 10/13/23 12:07 Last Admin: 10/13/23 12:25 Dose: Not Given Documented By: OBINNA Diltiazem HCl (Diltiazem Hcl 5 Mg/Ml 5 Ml Vial) 20 mg IV NOW STA Stop: 10/13/23 12:08 Last Admin: 10/13/23 12:25 Dose: 20 mg Documented By: OBINNA Co-signed By: ASHWIN Heparin Sodium (Porcine) (Heparin Sod (Porcine) 1000 Unit/Ml) 5,000 units IV NOW ONE Stop: 10/13/23 16:31 Last Admin: 10/13/23 16:36 Dose: 5,000 units Documented By: ANIKA Co-signed By: JAIR Heparin Sodium (Porcine) (Heparin Sod (Porcine) 1000 Unit/Ml) Confirm Administered Dose 1,000 units .ROUTE .STK-MED ONE Stop: 10/13/23 16:22 Last Admin: 10/13/23 16:59 Dose: Not Given Documented By: ANIKA Heparin Sodium/Dextrose (Heparin Iv Adult Wt-Based Standard W/ Initial Bolus Protocol) 1 each IV NOW STA; Protocol Stop: 10/13/23 15:37 Last Admin: 10/13/23 16:58 Dose: Not Given Documented By: ANIKA Heparin Sodium/Dextrose (Heparin 80307 Unit/500 Ml D5w) Confirm Administered Dose 25,000 units IV .STK-MED ONE Stop: 10/13/23 16:22 Last Admin: 10/13/23 16:59 Dose: Not Given Documented By: ANIKA Sodium Chloride (Nss) 1,000 mls @ 999 mls/hr IV .Q1H1M ONE Stop: 10/13/23 13:12 Last Infusion: 10/13/23 13:48 Dose: Infused Documented By: Admin: 10/13/23 12:26 Dose: 999 mls/hr Documented By: OBINNA Nitroglycerin (Nitroglycerin 60 Sprays/4.9 Gm [place]) Confirm Administered Dose 60 sprays .ROUTE .STK-MED ONE Stop: 10/13/23 12:11 Last Admin: 10/13/23 12:25 Dose: Not Given Documented By: OBINNA Nitroglycerin (Nitroglycerin Sl 0.4 Mg/Tab Tab) Confirm Administered Dose 0.4 mg .ROUTE .STK-MED ONE Stop: 10/13/23 12:12 Last Admin: 10/13/23 12:25 Dose: 0.4 mg Documented By: OBINNA Nitroglycerin (Nitroglycerin Sl 0.4 Mg/Tab Tab) 0.4 mg SL NOW STA Stop: 10/13/23 14:40 Last Admin: 10/13/23 14:20 Dose: 0.4 mg Documented By: OBINNA Medical Decision Making Laboratory Data Attestation: I reviewed the patient's lab results. 10/13/23 12:07 10/13/23 12:07 Labs: Lab Results 10/13/23 Range/Units 12:07 WBC 8.88 (4.8-10.8) K/ul RBC 5.71 H (4.20-5.40) M/uL Hgb 17.5 H (12.0-16.0) g/dl Hct 50.3 H (37.0-47.0) % MCV 88.1 (80.0-100.0) fL MCH 30.6 (25.0-34.0) pg MCHC 34.8 (32.0-36.0) g/dL RDW Std Deviation 40.4 (36.4-46.3) fL RDW Coeff of Ahsan 12.5 (11.5-14.5) % Plt Count 221 (130-400) K/uL MPV 11.0 (9.4-12.4) fL Immature Gran % (Auto) 0.6 % Neut % (Auto) 61.1 % Lymph % (Auto) 29.5 % [place] % (Auto) 6.1 % Eos % (Auto) 2.1 % Baso % (Auto) 0.6 % Neut # (Auto) 5.43 (1.40-6.50) K/uL Lymph # (Auto) 2.62 (1.20-3.40) K/uL [place] # (Auto) 0.54 (0.11-0.59) K/uL Eos # (Auto) 0.19 (0.00-0.50) K/uL Baso # (Auto) 0.05 (0.00-0.20) K/uL Immature Gran # (Auto) 0.05 (0.01-0.20) K/uL PT 10.5 (9.0-12.0) Seconds INR 1.0 (0.9-1.1) APTT 26 (21-31) Seconds PTT Ratio 0.9 D-Dimer 400 (0-500) ug/L FEU Sodium 139 (136-145) mmol/L Potassium 4.0 (3.5-5.1) mmol/L Chloride 104 (98-107) mmol/L Carbon Dioxide 28 (21-32) mmol/L Anion Gap 7 (3-11) BUN 16 (6-23) mg/dl Creatinine 0.83 (0.6-1.2) mg/dl Est Cr Clr Drug Dosing 78.0 ml/min Est GFR ( Amer) 85.2 ml/min Est GFR (Non-Af Amer) 73.5 ml/min BUN/Creatinine Ratio 19.3 (10-20) Glucose 196 H (70-99(Fasting)) mg/dl Calcium 9.6 (8.6-10.3) mg/dl Magnesium 1.7 (1.7-2.4) mg/dl Total Bilirubin 0.7 (0.2-1.0) mg/dl AST 25 (13-39) U/L ALT 27 (7-52) U/L Alkaline Phosphatase 60 (34-104) U/L Troponin I High Sens 7.6 (0-14) pg/ml Total Protein 8.0 (6.0-8.3) gm/dl Albumin 4.7 (3.4-5.0) gm/dl Globulin 3.3 (2.5-4.0) gm/dl Albumin/Globulin Ratio 1.4 (0.9-2) Imaging Data Chest x-ray: Attestation: I personally reviewed and interpreted this imaging study as follows: My impression: Chest x-ray negative. Airway clear. No pneumothorax. No consolidation. No cardiomegaly or cephalization.. No free air under the diaphragm. No fractures of the skeletal structures. Radiologist's impression: Chest X-Ray 10/13/23 11:40 XR chest 1V portable CLINICAL HISTORY: Chest pain, nonspecific TECHNIQUE: Single frontal radiograph of the chest was obtained. Comparison: None available at the time of this dictation. FINDINGS: No lines and tubes are seen. The cardiomediastinal silhouette is normal. The lungs are clear. No evidence of pleural effusion or pneumothorax. IMPRESSION: No acute chest disease. ACT 112: Negative or not required by law. Electronically signed by: Lalo Javier M.D. 10/13/2023 12:59 PM ECG Data Attestation: I personally reviewed and interpreted this ECG as follows: Additional Comments: EKG #1 at 1200: Atrial fibrillation with a rate of 132. QRS and QTc intervals within normal limits. No ST elevation or ST depression. EKG #2 at 1215: Status post Cardizem bolus: Atrial fibrillation with rate 94. QRS and QTc intervals within normal limits. No ST elevation or ST depression. MDM Narrative 1200: The patient was evaluated in room A1. A complete history and physical exam was performed Cardiac monitoring: An order was placed for continuous cardiac monitoring. The monitor shows a rate of 140-160 with sinus tachycardia rhythm interpreted by me Patient found to be in A-fib RVR. Cardizem bolus ordered for the patient 1218: Status post Cardizem bolus patient's ventricular rate is improved into the 90s. Patient still in atrial fibrillation. Patient reports that her chest pain is resolved status post Cardizem bolus and 1 sublingual nitroglycerin. 1410: Vital signs stable. Patient still in atrial fibrillation. Ventricular rate controlled. Labs and imaging within normal limits. Patient be admitted to the [facility] team spoke with Shannon who stated to admit to Dr. Collier. Impression & Plan New onset atrial fibrillation Critical Care Time Critical Care Time: Yes Total Critical Care Time: 62 I have personally spent greater than 62 minutes of critical care time in the direct management of this patient. This includes bedside care, interpretation of diagnostic studies, and testing, discussion with consultants, patient, and family members, and other required patient management activities. This 62 minutes is in excess of all separately billable procedures. Discharge Plan Visit Data Chief Complaint: Chest Pain Stated Complaint: CHEST PAIN, LOWER BACK PAIN, SOB ED Provider: Manoj Talley Discharge Problem: New onset atrial fibrillation Patient Disposition: Admitted As Inpatient Discharge Instructions Interventions: ED Discharge Assessment Last Done: 10/13/23 16:37
[2023-10-13] MEDS: INSULIN ASPART PER UNIT CHARGE SC SCH (18:38)
[2023-10-13] MEDS: METOPROLOL SUCC 25MG EXT REL TAB PO SCH (19:44)
[2023-10-13] MEDS ORDERED: LANTUS PER UNIT CHARGE SQ SCH (21:00)
--- NOTE | 2023-10-13 22:00 | Electrocardiogram Report ---
Test Reason : Blood Pressure : / mmHG Vent. Rate : 094 BPM Atrial Rate : 000 BPM P-R Int : 000 ms QRS Dur : 086 ms QT Int : 352 ms P-R-T Axes : 000 -06 101 degrees QTc Int : 440 ms Atrial fibrillation Cannot rule out Anterior infarct , age undetermined Nonspecific T wave abnormality Abnormal ECG When compared with ECG of 19-JUL-2019 09:16, Atrial fibrillation has replaced Sinus rhythm Confirmed by Yogi Angulo ([id number]) on 10/13/2023 10:00:14 PM Referred By: REFERRED SELF Confirmed By:Yogi Angulo
[2023-10-13] MEDS: FAMOTIDINE 40 MG TABLET PO SCH (23:19)
[2023-10-13 23:36] LABS: ANTI-Xa, UFH(UnfractionatedHep 0.65 IU/ml (0.3-0.7)
[2023-10-14 06:43] LABS: Hematocrit (blood only) 41.9 % (37.0-47.0); Mean Corpuscular Hemoglobin 30.3 pg (25.0-34.0); Mean Corpuscular Hgb Conc 33.4 g/dL (32.0-36.0); Mean Corpuscular Volume 90.7 fL (80.0-100.0); Mean Platelet Volume 11.3 fL (9.4-12.4); Platelet Count 176 K/uL (130-400); RDW Coefficient of Variation 12.7 % (11.5-14.5); Red Blood Count 4.62 M/uL (4.20-5.40); White Blood Count 8.07 K/ul (4.8-10.8)
[2023-10-14 06:46] LABS: ANTI-Xa, UFH(UnfractionatedHep 0.55 IU/ml (0.3-0.7)
[2023-10-14 06:47] LABS: Albumin Globulin Ratio 1.5 (0.9-2); Albumin Level 3.9 gm/dl (3.4-5.0); BUN Creatinine Ratio 20.8 (10-20); Bilirubin,Total 0.7 mg/dl (0.2-1.0); Calcium 8.7 mg/dl (8.6-10.3); Chol HDL Ratio 3.5 (0-5); Creatinine Clr Calc Pharmacy 90.2 ml/min; Est GFR (African American) 101.1 ml/min; Est GFR (Non-African American) 87.3 ml/min; Globulin 2.6 gm/dl (2.5-4.0); Magnesium 1.7 mg/dl (1.7-2.4); Potassium 3.8 mmol/L (3.5-5.1); Total Protein 6.5 gm/dl (6.0-8.3)
[2023-10-14] MEDS: LEVOTHYROXINE SODIUM 75 MCG TABLET PO SCH (07:55)
[2023-10-14 08:30] LABS: Estimated Average Glucose 140 mg/dl; Hemoglobin A1C 6.5 % (4.5-5.6)
--- NOTE | 2023-10-14 10:36 | Cardiology Progress Note ---
Date of Service October 14, 2023 Assessment & Plan (1) New onset atrial fibrillation: (2) Chest pain: (3) HLD (hyperlipidemia): (4) Hypertension: Plan 67-year-old female presents after having developed symptoms of chest pressure palpitations and shortness of breath at low-level activity this morning. Symptoms persisted and ultimately resulted in ER presentation. Patient found to be in atrial fibrillation with elevated ventricular response. Pain eased with 1 sublingual nitroglycerin and atrial fibrillation rate slowed with single dose of IV diltiazem with ultimate spontaneous conversion to sinus rhythm Patient referred for further management. Issues addressed as follows 1. New onset atrial fibrillation: Patient spontaneously converted to sinus rhythm. Agree with beginning metoprolol succinate 25 mg p.o. daily for rhythm control and to complete GDMT for cardiovascular risk (beta-avni, LYNNE inhibitor, statin, antiplatelet therapy) IV heparin begun for anticoagulant and will ultimately plan on transitioning to Eliquis. Patient with [id number] 2 score of 4. Discussed in detail with patient Records reflect concerns regarding possible obstructive sleep apnea. Sleep evaluation warranted 2. Chest pain: Symptoms concerning for angina with relief with sublingual nitroglycerin. Reviewed outpatient records/EKGs. EKG 2019 with anterior T wave inversion with chest pain hypertension Will follow serial EKG and cardiac enzyme Keep n.p.o. after midnight. Will require further ischemic restratification. Continue risk factor modification as already begun 10/14/2023 Patient remains in sinus rhythm tolerating changes in medications and anticoagulants. No further chest pains. EKG cardiac enzymes without evidence of ischemia Plan stress echocardiogram today for further risk assessment Admission and Anticipated Discharge Date Admission Date: October 13, 2023 Subjective Patient seen and examined, chart, medications, telemetry reviewed Patient feels well this morning no chest pain or shortness of breath no arrhythmias on telemetry remains in sinus rhythm since conversion last evening. No dizziness lightheadedness syncope or near syncope No bleeding issues on heparin Review of Systems Review of Systems: All systems reviewed & are unremarkable except as noted in Subjective Physical Exam Constitutional: WD/WN, vitals as above + obese; no acute distress Eyes: PERRL, conjunctivae normal, anicteric sclerae ENMT: external ear and nose normal, oropharynx normal Neck: trachea midline, no thyromegaly + thick neck Respiratory: normal respiratory effort, lungs clear to auscultation Cardiovascular: Rate/Rhythm: regular rate and regular rhythm Heart Sounds: normal S1 and normal S2; no gallop and no murmur Palpation: normal PMI Vessels: normal carotid upstroke and radial pulses present; no JVD and no carotid bruit Extremities: no edema Gastrointestinal (Abdomen): normal bowel sounds, soft, nontender, no hepatosplenomegaly Musculoskeletal: no cyanosis or clubbing, extremities motor strength 5/5 Skin: no rashes, warm and dry Neurologic: PERRL, EOMI, accommodation nl, no face palsy, no dysarthria Psychiatric: A+Ox3, euthymic affect Results & Data Vital Signs (Past 12 Hours) Vital Signs Temp Pulse Resp BP Pulse Ox O2 Del Method 10/14/23 07:37 36.8 C 18 L 18 116/76 59 L Room Air 10/14/23 03:00 36.6 C 61 16 96/55 L 95 Room Air 10/13/23 23:00 36.7 C 67 18 113/64 93 Room Air Laboratory Results Laboratory Results - last 24 hr 10/13/23 10/13/23 10/13/23 12:07 15:02 18:10 WBC 8.88 RBC 5.71 H Hgb 17.5 H Hct 50.3 H MCV 88.1 MCH 30.6 MCHC 34.8 RDW Std Deviation 40.4 RDW Coeff of Ahsan 12.5 Plt Count 221 MPV 11.0 Immature Gran % (Auto) 0.6 Neut % (Auto) 61.1 Lymph % (Auto) 29.5 [place] % (Auto) 6.1 Eos % (Auto) 2.1 Baso % (Auto) 0.6 Neut # (Auto) 5.43 Lymph # (Auto) 2.62 [place] # (Auto) 0.54 Eos # (Auto) 0.19 Baso # (Auto) 0.05 Immature Gran # (Auto) 0.05 PT 10.5 INR 1.0 APTT 26 PTT Ratio 0.9 D-Dimer 400 Heparin Anti-Xa, Unfract Sodium 139 Potassium 4.0 Chloride 104 Carbon Dioxide 28 Anion Gap 7 BUN 16 Creatinine 0.83 Est Cr Clr Drug Dosing 78.0 Est GFR ( Amer) 85.2 Est GFR (Non-Af Amer) 73.5 BUN/Creatinine Ratio 19.3 Glucose 196 H POC Glucose 125 H Estimat Average Glucose Hemoglobin A1c Calcium 9.6 Magnesium 1.7 Total Bilirubin 0.7 AST 25 ALT 27 Alkaline Phosphatase 60 Troponin I High Sens 7.6 9.3 B-Natriuretic Peptide 25 Total Protein 8.0 Albumin 4.7 Globulin 3.3 Albumin/Globulin Ratio 1.4 Triglycerides Cholesterol LDL Cholesterol, Calc VLDL Cholesterol, Calc HDL Cholesterol Cholesterol/HDL Ratio TSH 9.721 H 10/13/23 10/13/23 10/14/23 19:59 22:37 05:55 WBC 8.07 RBC 4.62 Hgb 14.0 D Hct 41.9 MCV 90.7 MCH 30.3 MCHC 33.4 RDW Std Deviation 42.0 RDW Coeff of Ahsan 12.7 Plt Count 176 MPV 11.3 Immature Gran % (Auto) Neut % (Auto) Lymph % (Auto) [place] % (Auto) Eos % (Auto) Baso % (Auto) Neut # (Auto) Lymph # (Auto) [place] # (Auto) Eos # (Auto) Baso # (Auto) Immature Gran # (Auto) PT INR APTT PTT Ratio D-Dimer Heparin Anti-Xa, Unfract 0.65 0.55 Sodium 140 Potassium 3.8 Chloride 105 Carbon Dioxide 29 Anion Gap 6 BUN 15 Creatinine 0.72 Est Cr Clr Drug Dosing 90.2 Est GFR ( Amer) 101.1 Est GFR (Non-Af Amer) 87.3 BUN/Creatinine Ratio 20.8 H Glucose 115 H POC Glucose 131 H Estimat Average Glucose 140 Hemoglobin A1c 6.5 H Calcium 8.7 Magnesium 1.7 Total Bilirubin 0.7 AST 21 ALT 22 Alkaline Phosphatase 46 Troponin I High Sens B-Natriuretic Peptide Total Protein 6.5 Albumin 3.9 Globulin 2.6 Albumin/Globulin Ratio 1.5 Triglycerides 167 H Cholesterol 98 LDL Cholesterol, Calc 37 VLDL Cholesterol, Calc 33 H HDL Cholesterol 28 Cholesterol/HDL Ratio 3.5 TSH 10/14/23 07:52 WBC RBC Hgb Hct MCV MCH MCHC RDW Std Deviation RDW Coeff of Ahsan Plt Count MPV Immature Gran % (Auto) Neut % (Auto) Lymph % (Auto) [place] % (Auto) Eos % (Auto) Baso % (Auto) Neut # (Auto) Lymph # (Auto) [place] # (Auto) Eos # (Auto) Baso # (Auto) Immature Gran # (Auto) PT INR APTT PTT Ratio D-Dimer Heparin Anti-Xa, Unfract Sodium Potassium Chloride Carbon Dioxide Anion Gap BUN Creatinine Est Cr Clr Drug Dosing Est GFR ( Amer) Est GFR (Non-Af Amer) BUN/Creatinine Ratio Glucose POC Glucose 118 H Estimat Average Glucose Hemoglobin A1c Calcium Magnesium Total Bilirubin AST ALT Alkaline Phosphatase Troponin I High Sens B-Natriuretic Peptide Total Protein Albumin Globulin Albumin/Globulin Ratio Triglycerides Cholesterol LDL Cholesterol, Calc VLDL Cholesterol, Calc HDL Cholesterol Cholesterol/HDL Ratio TSH
--- NOTE | 2023-10-14 11:28 | Communication Note ---
Date of Service: October 14, 2023 Patient referred and underwent stress echocardiogram today. Patient dyspneic with exertion but achieved 4 minutes and 30 seconds on Kannan protocol for an estimated met level 6 METS. No evidence of ischemia by EKG or echocardiographic findings there with mild blunted heart rate response Plan: Transition IV heparin to oral Eliquis. Continue current medical regimen including metoprolol succinate 25 mg p.o. daily Follow-up cardiology 2 to 4 weeks
[2023-10-14] MEDS: ATORVASTATIN 20 MG TAB PO SCH (11:29)
[2023-10-14] MEDS: CALCIUM 600MG + VIT D 400 IU TAB PO SCH (11:29)
[2023-10-14] MEDS: LISINOPRIL/HCTZ 10/12.5MG TAB PO SCH (11:29)
[2023-10-14] MEDS: APIXABAN 5 MG TABLET PO SCH (12:27)
--- NOTE | 2023-10-14 14:08 | Pharmacy Report ---
Pharmacy Glycemic Short Note 2 - Date of Service October 14, 2023 - Glycemic Short BSG Results (Last 24 hours): 10/13/23 10/13/23 10/14/23 18:10 19:59 05:55 Glucose 115 H POC Glucose 125 H 131 H 10/14/23 07:52 Glucose POC Glucose 118 H OUTPATIENT ANTIDIABETIC REGIMEN: * metformin 500mg qam * Trulicity 0.75mg SQ/week * A1c: 6.5% ASSESSMENT: * Patient admitted with new onset Afib, controlled on metformin and Trulicity as an outpatient. * BSGs have been reasonable thus far [phone] mg/dL. * Will continue with NovoLog only for now * Patient was NPO today for stress echo but is now ordered a diet. PLAN FOR INPATIENT GLYCEMIC CONTROL: * Hold outpatient oral diabetes medications * Bolus insulin * NovoLog per scale ACHS or Q6hrs while NPO * Goal Range: Low 110 mg/dL - High 140 mg/dL * Correction Factor: 30 mg/dL/unit * Nutritional / Prandial insulin per carb ratio of 1 unit per 10 grams CHO consumed
--- NOTE | 2023-10-14 15:30 | Discharge Summary ---
Discharge Summary Date of Service October 14, 2023 Notes For Next Care Provider Medication Changes From Visit METOPROLOL - for heart rate control ELIQUIS- blood thinner to prevent stroke Admission HPI Per Admitting Provider Ms. Arauz is a 67-year-old female that presented to the ED this morning with complaints of shortness of breath, palpitations, and midsternal chest pain with radiation down her left arm. She reports feeling nauseous starting on Friday without vomiting. No other contributing symptoms. When placed on heart monitor she was noted to be in atrial fibrillation with rapid ventricular response with a rate ranged from 130-150. 1 sublingual nitro was administered with resolution of her chest pain. Additional past medical history includes HTN, HLD, hypothyroidism, vns-mxnrxhk-kqxiyhoiu diabetes type 2, and GERD. In the ED SL nitro x 1, ASA 324 mg, Cardizem bolus 20 mg along with 1L NS administered. Heart rate decreased to low 100s remaining in A-fib. Reportedly patient had a repeat episode of chest pain at 2:15 for which another sublingual nitro was administered. Chest x-ray negative for acute cardiopulmonary disease. No leukocytosis, electrolytes unremarkable. D-dimer negative. Initial troponin negative. She takes lisinopril/HCTZ as an outpatient but is not on any beta-avni medication. She does take a low-dose statin. Patient denies any cardiac or stroke history outside of hypertension. Father had extensive history of CAD s/p AMI, DM2, and CVA. He was at 95 y/o. Denies tobacco, alcohol, or recreational drug use. Review of outpatient records indicate on 04/29/2023 her last A1c (6.5) and TSH (13.20) were drawn. Patient denies coffee or energy drink intake. Patient denies headache, dizziness,, shortness of breath, abdominal pain or tenderness, visual or auditory changes, changes with bowel or urine, recent falls or trauma. When I was in the room it appeared based on the heart monitor that she converted to normal sinus rhythm. Will obtain new EKG. Otherwise AOx4 without diaphoresis, notes some bilateral trace lower extremity edema which is chronic for her. Patient will be admitted for new onset atrial fibrillation management. [id number] VASc score 4 (age, gender, history of HTN and DM ). Given her moderate to severe risk of cardiac event given her [id number] and moderate- severe risk of AMI/CVA; will add beta-avni for rate control and heparin drip. Zain trend troponin, obtain echocardiogram (no baseline noted as an outpatient), ECG admit to PCU, consult cardiology, place on SSI while obtaining A1c, TSH, and lipid panel. Admission Exam Per Admitting Provider Neuro: AAOx4, PERRLA, no aphagia, memory changes, CNII-XII grossly intact HEENT: head normocephalic, moist mucus membranes CV: S1/S2, (-) M/G/R, (+)1 BL edema, cap refill < 3 seconds Resp: Lungs CTA in all pham. On RA GI: Abdomen S/NT/ND, Ax4 bowel sounds, (-) CVA tenderness Musculoskeletal: 5/5 B/L UE strength, 5/5 B/L LE strength. No gait disturbance Skin: (-) rashes , (-) erythema. Psych: euthymic mood Principal Dx & Hospital Course #1 = Principal Diagnosis (1) New onset atrial fibrillation: (2) Hypertension: (3) HLD (hyperlipidemia): (4) Acid reflux: (5) Non-insulin dependent type 2 diabetes mellitus: (6) Chest pain: Plan per admitting service notes: New onset atrial fibrillation: Chest pain: Acute Initial heart rate irregular 130-150 [id number]: 4 ECG: AF with possible changes in II, III, and AvF; converted to NSR in the room; obtain repeat ECG Initial troponin negative; will trend x 1. Do not suspect ACS or other ischemic demand related to new onset A-fib No leukocytosis, D-dimer negative, no electrolyte abnormalities CXR negative Received nitro x 1 SL and ASA 324 mg in ED Received Cardizem bolus 20 mg in ED; Will place beta-avni and heparin drip 10/14 converted to sinus rhythm overnight feeling fine transitioned to Metoprolol XL 25mg po daily transitioned from heparin drip to Eliquis 5mg po BID ff up with Support [facility] in 3-4 weeks HTN: Chronic Takes lisinopril/HCTZ; continue HLD: Chronic Takes atorvastatin; continue Most recent lipid panel 12/11/2022; TG 160, HDL 37, LDL 75 Diabetes Mellitus type II: Chronic Qnk-bjqyqlg-nriapxmus Takes Trulicity and metformin Most recent A1c 04/29/2023; 6.5; repeat while here in a.m. JIMENA: Chronic Was supposed to have a sleep study done, but has not yet GERD: Chronic Takes famotidine; continue Disposition: PCP: Dr. aBdillo CODE STATUS: Full Code VTE prophylaxis: Heparin gtt Discharge Exam General- oriented x 3, not in distress, speaks in sentences with no effort or accessory muscle use Eyes- anicteric Neck- no JVD Lungs- clear breath sounds bilaterally, no rales/wheezes Heart- normal rate, regular rhythm; no murmurs Abdomen- normal bowel sounds, nondistended, soft, nontender Extremities- no pretibial edema, no calf tenderness Neuro- alert, oriented x 3; no gross focal neurologic deficits Skin- warm & dry Updated Medication List Medication Instructions Recorded Confirmed Type atorvastatin 20 mg tablet 20 mg PO QAM 10/13/23 10/13/23 History calcium carbonate 600 mg-vitamin 2 tab PO DAILY 10/13/23 10/13/23 History D3 10 mcg (400 unit) tablet (Calcium 600 + D(3)) dulaglutide 0.75 mg/0.5 mL 0.75 mg subcut .WEEK 10/13/23 10/13/23 History subcutaneous pen injector (Trulicity) famotidine 40 mg tablet 40 mg PO HS 10/13/23 10/13/23 History fexofenadine 180 mg tablet 180 mg PO DAILY 10/13/23 10/13/23 History fluticasone propionate 50 2 spray intranasal DIRECTED PRN 10/13/23 10/13/23 History mcg/actuation nasal Nasal Congestion spray,suspension (Flonase Allergy Relief) msawuvhfewy-uhnampqls-ekz C-Mn 500 1 cap PO DAILY 10/13/23 10/13/23 History mg-400 mg capsule levothyroxine 75 mcg tablet 75 mcg PO QAM 10/13/23 10/13/23 History lisinopril 10 1 tab PO QAM 10/13/23 10/13/23 History mg-hydrochlorothiazide 12.5 mg tablet meclizine 25 mg tablet 25 mg PO TID PRN .dizzyness 10/13/23 10/13/23 History metformin 500 mg tablet,extended 500 mg PO QAM 10/13/23 10/13/23 History release 24 hr multivitamin 1 tab PO DAILY 10/13/23 10/13/23 History omega-3 fatty acids 1,000 mg 1,000 mg PO DAILY 10/13/23 10/13/23 History capsule apixaban 5 mg tablet (Eliquis) 5 mg PO BID 30 days #60 tabs 10/14/23 Rx metoprolol succinate 25 mg 25 mg PO QAM 30 days #30 tabs 10/14/23 Rx tablet,extended release 24 hr Hospital Stay Data Consultations 10/13/23 13:51 ED Decision to Admit Stat 10/13/23 15:05 Consult Cardiology Routine Diagnostic Imagining Performed Laboratory Results WBC 8.07 K/ul (4.8-10.8) 10/14/23 05:55 RBC 4.62 M/uL (4.20-5.40) 10/14/23 05:55 Hgb 14.0 g/dl (12.0-16.0) D 10/14/23 05:55 Hct 41.9 % (37.0-47.0) 10/14/23 05:55 MCV 90.7 fL (80.0-100.0) 10/14/23 05:55 MCH 30.3 pg (25.0-34.0) 10/14/23 05:55 MCHC 33.4 g/dL (32.0-36.0) 10/14/23 05:55 RDW Std Deviation 42.0 fL (36.4-46.3) 10/14/23 05:55 RDW Coeff of Ahsan 12.7 % (11.5-14.5) 10/14/23 05:55 Plt Count 176 K/uL (130-400) 10/14/23 05:55 MPV 11.3 fL (9.4-12.4) 10/14/23 05:55 Immature Gran % (Auto) 0.6 % 10/13/23 12:07 Neut % (Auto) 61.1 % 10/13/23 12:07 Lymph % (Auto) 29.5 % 10/13/23 12:07 Mccone % (Auto) 6.1 % 10/13/23 12:07 Eos % (Auto) 2.1 % 10/13/23 12:07 Baso % (Auto) 0.6 % 10/13/23 12:07 Neut # (Auto) 5.43 K/uL (1.40-6.50) 10/13/23 12:07 Lymph # (Auto) 2.62 K/uL (1.20-3.40) 10/13/23 12:07 Mccone # (Auto) 0.54 K/uL (0.11-0.59) 10/13/23 12:07 Eos # (Auto) 0.19 K/uL (0.00-0.50) 10/13/23 12:07 Baso # (Auto) 0.05 K/uL (0.00-0.20) 10/13/23 12:07 Immature Gran # (Auto) 0.05 K/uL (0.01-0.20) 10/13/23 12:07 PT 10.5 Seconds (9.0-12.0) 10/13/23 12:07 INR 1.0 (0.9-1.1) 10/13/23 12:07 APTT 26 Seconds (21-31) 10/13/23 12:07 PTT Ratio 0.9 10/13/23 12:07 D-Dimer 400 ug/L FEU (0-500) 10/13/23 12:07 Heparin Anti-Xa, Unfract 0.55 IU/ml (0.3-0.7) 10/14/23 05:55 Sodium 140 mmol/L (136-145) 10/14/23 05:55 Potassium 3.8 mmol/L (3.5-5.1) 10/14/23 05:55 Chloride 105 mmol/L (98-107) 10/14/23 05:55 Carbon Dioxide 29 mmol/L (21-32) 10/14/23 05:55 Anion Gap 6 (3-11) 10/14/23 05:55 BUN 15 mg/dl (6-23) 10/14/23 05:55 Creatinine 0.72 mg/dl (0.6-1.2) 10/14/23 05:55 Est Cr Clr Drug Dosing 90.2 ml/min 10/14/23 05:55 Est GFR ( Amer) 101.1 ml/min 10/14/23 05:55 Est GFR (Non-Af Amer) 87.3 ml/min 10/14/23 05:55 BUN/Creatinine Ratio 20.8 (10-20) H 10/14/23 05:55 Glucose 115 mg/dl (70-99(Fasting)) H 10/14/23 05:55 POC Glucose 118 mg/dl (70-99) H 10/14/23 07:52 Estimat Average Glucose 140 mg/dl 10/14/23 05:55 Hemoglobin A1c 6.5 % (4.5-5.6) H 10/14/23 05:55 Calcium 8.7 mg/dl (8.6-10.3) 10/14/23 05:55 Magnesium 1.7 mg/dl (1.7-2.4) 10/14/23 05:55 Total Bilirubin 0.7 mg/dl (0.2-1.0) 10/14/23 05:55 AST 21 U/L (13-39) 10/14/23 05:55 ALT 22 U/L (7-52) 10/14/23 05:55 Alkaline Phosphatase 46 U/L (34-104) 10/14/23 05:55 Troponin I High Sens 9.3 pg/ml (0-14) 10/13/23 15:02 B-Natriuretic Peptide 25 pg/ml (0-100) 10/13/23 15:02 Total Protein 6.5 gm/dl (6.0-8.3) 10/14/23 05:55 Albumin 3.9 gm/dl (3.4-5.0) 10/14/23 05:55 Globulin 2.6 gm/dl (2.5-4.0) 10/14/23 05:55 Albumin/Globulin Ratio 1.5 (0.9-2) 10/14/23 05:55 Triglycerides 167 mg/dl (0-150) H 10/14/23 05:55 Cholesterol 98 mg/dl (0-200) 10/14/23 05:55 LDL Cholesterol, Calc 37 mg/dl 10/14/23 05:55 VLDL Cholesterol, Calc 33 mg/dl (0-30) H 10/14/23 05:55 HDL Cholesterol 28 mg/dl 10/14/23 05:55 Cholesterol/HDL Ratio 3.5 (0-5) 10/14/23 05:55 TSH 9.721 uIu/ml (0.300-4.500) H 10/13/23 15:02 Impressions Chest X-Ray 10/13/23 11:40 XR chest 1V portable CLINICAL HISTORY: Chest pain, nonspecific TECHNIQUE: Single frontal radiograph of the chest was obtained. Comparison: None available at the time of this dictation. FINDINGS: No lines and tubes are seen. The cardiomediastinal silhouette is normal. The lungs are clear. No evidence of pleural effusion or pneumothorax. IMPRESSION: No acute chest disease. ACT 112: Negative or not required by law. Electronically signed by: Lalo Javier M.D. 10/13/2023 12:59 PM Discharge Instructions Given to Patient (Per Discharging Provider) PLEASE REFER TO YOUR NEW MEDICATION LIST AND FOLLOW INSTRUCTIONS CAREFULLY. YOUR NEW MEDICATIONS INCLUDE: METOPROLOL - for heart rate control ELIQUIS- blood thinner to prevent stroke PLEASE CALL YOUR PRIMARY CARE PHYSICIAN OR RETURN TO THE ER IF WITH WORSENING OF SYMPTOMS, INCLUDING chest pain, palpitations, dizziness, shortness of breath, bleeding, etc FOLLOW UP WITH PRIMARY CARE PHYSICIAN OUTLINED ABOVE. FOLLOW UP WITH [employer] DR. RICHARDS IN 3-4 WEEKS. Total Time Total Time Spent Total Time Spent (In Minutes): >30 minutes
[2023-10-14] MEDS: PNEUMOCOCCAL VACCINE (PCV20) 20-VAL CONJ-DIP CRM/PF 0.5 ML SYR IM ONE (16:01)
[2023-10-14] MEDS: INFLUENZA VACCINE HIGH-DOSE (HD-IIV4) PF 65+ 0.7mL SYR IM ONE (16:32)
--- NOTE | 2023-10-15 05:21 | Electrocardiogram Report ---
Test Reason : Blood Pressure : / mmHG Vent. Rate : 132 BPM Atrial Rate : 000 BPM P-R Int : 000 ms QRS Dur : 082 ms QT Int : 292 ms P-R-T Axes : 000 -09 098 degrees QTc Int : 432 ms Atrial fibrillation with rapid ventricular response Poor R wave progression, consider anterior PR vs. lead placement vs. LVH Abnormal ECG When compared with ECG of 19-JUL-2019 09:16, Atrial fibrillation has replaced Sinus rhythm Vent. rate has increased BY 45 BPM Nonspecific T wave abnormality, improved in Lateral leads Confirmed by Yogi Angulo ([id number]) on 10/15/2023 5:21:35 AM Referred By: REFERRED SELF Confirmed By:Yogi Angulo
--- NOTE | 2023-10-15 05:34 | Electrocardiogram Report ---
Test Reason : Blood Pressure : / mmHG Vent. Rate : 077 BPM Atrial Rate : 077 BPM P-R Int : 128 ms QRS Dur : 084 ms QT Int : 354 ms P-R-T Axes : 042 009 099 degrees QTc Int : 400 ms Normal sinus rhythm with sinus arrhythmia Possible Anterior infarct (cited on or before 13-OCT-2023) Nonspecific T wave abnormality Abnormal ECG When compared with ECG of 13-OCT-2023 12:15, Sinus rhythm has replaced Atrial fibrillation Confirmed by Yogi Angulo ([id number]) on 10/15/2023 5:34:06 AM Referred By: REFERRED SELF Confirmed By:Yogi Angulo
--- NOTE | 2023-10-15 06:02 | Electrocardiogram Report ---
Test Reason : Blood Pressure : / mmHG Vent. Rate : 082 BPM Atrial Rate : 082 BPM P-R Int : 172 ms QRS Dur : 092 ms QT Int : 342 ms P-R-T Axes : 031 034 107 degrees QTc Int : 399 ms Normal sinus rhythm Nonspecific T wave abnormality Abnormal ECG When compared with ECG of 13-OCT-2023 15:22, Nonspecific T wave abnormality, worse in Inferior leads Confirmed by Yogi Angulo ([id number]) on 10/15/2023 6:02:42 AM Referred By: REFERRED SELF Confirmed By:Yogi Angulo
== END 2023-10-14 16:56 | disposition home or self-care (01) | DRG 310 ==
LOC: ED 11:28 → SUATTDRO 14:14 → EDINP 14:14 → 2E 16:37